=== PATIENT | male | born 1970 | race Caucasian/White ===

== ENCOUNTER → 2020-09-04 08:50 | Outpatient (BNVA) | payer OTHER, SELFPAY | PROVIDERS: PCP Physician Assistant; Visit Provider Internal Medicine | DX: S83.92XA Sprain of unspecified site of left knee, initial encounter (principal); S33.9XXA Sprain of unspecified parts of lumbar spine and pelvis, initial encounter; X50.0XXA Overexertion from strenuous movement or load, initial encounter; X50.1XXA Overexertion from prolonged static or awkward postures, initial encounter | CPT/HCPCS: 72110; 73564; 99203 ==

== ENCOUNTER → 2020-09-09 09:36 | Outpatient (BNVA) | payer OTHER, SELFPAY | PROVIDERS: PCP Physician Assistant; Visit Provider Physician Assistant | DX: S39.012A Strain of muscle, fascia and tendon of lower back, initial encounter (principal); S89.92XA Unspecified injury of left lower leg, initial encounter; X58.XXXA Exposure to other specified factors, initial encounter | CPT/HCPCS: 99214 ==

== ENCOUNTER → 2020-09-17 09:54 | Outpatient (BNVA) | payer OTHER, SELFPAY | PROVIDERS: PCP Physician Assistant; Visit Provider Physician Assistant | DX: S83.92XA Sprain of unspecified site of left knee, initial encounter (principal); S33.9XXA Sprain of unspecified parts of lumbar spine and pelvis, initial encounter; X58.XXXA Exposure to other specified factors, initial encounter | CPT/HCPCS: 99213 ==

== ENCOUNTER 2020-09-29 08:57 | Outpatient (REF) | payer OTHER, SELFPAY ==
--- NOTE | ~2020-09-29 | MR_ITS ---
EXAMINATION: MR KNEE WITHOUT CONTRAST, LEFT CLINICAL INFORMATION: Medial and lateral left knee pain. COMPARISON: Left knee radiographs dated 09/04/2020 and left knee MRI dated 05/11/2006. TECHNIQUE: MRI of the knee without contrast was performed using routine sequences on a high-field scanner. FINDINGS: MENISCI: Medial Meniscus: Oblique tibial articular surface tear through the meniscal body and posterior horn extending to the posterior root, significantly increased in prominence when compared to the prior MRI. Associated degenerative signal throughout the medial meniscal body and posterior horn. Lateral Meniscus: Intact LIGAMENTS: Cruciate: Intact Collateral: Thickening of the medial collateral ligament, consistent with a remote injury. Adjacent edema, which could indicate an acute grade 1 sprain. Intact fibular collateral ligament. EXTENSOR MECHANISM: Intact ARTICULAR CARTILAGE/BONE: Patellofemoral Compartment: Normal Medial Compartment: Mild weightbearing articular cartilage signal heterogeneity with tiny marginal osteophytes. Findings are new when compared to the prior examination. Lateral Compartment: Mild articular cartilage signal heterogeneity and subchondral cystic change at the posterior nonweightbearing lateral femoral condyle. Findings are new when compared to the prior examination. JOINT FLUID AND BURSAE: Small joint effusion and trace Vogt's cyst. Fluid within the pes anserine bursa, consistent with mild bursitis. Mild edema volar to the proximal fibula in the region of the previously seen ganglion cyst. MR/MR knee LT wo con IMPRESSION: 1. Oblique tibial articular surface tear of the medial meniscal body and posterior horn extending into the posterior root, significantly increased in prominence when compared to the prior MRI. 2. Probable grade 1 sprain of the medial collateral ligament. 3. Mild medial and minimal lateral compartment arthrosis, new when compared to the prior examination. Small joint effusion and trace Vogt's cyst. 4. Fluid within the pes anserine bursa, consistent with mild bursitis and new when compared to the prior examination.
== END 2020-09-29 08:58 | disposition home or self-care (01) ==
LOC: HO.MRI 08:57
PROVIDERS: Visit Provider Internal Medicine
DX: M25.562 Pain in left knee (principal)
CPT/HCPCS: 73721

== ENCOUNTER → 2020-09-30 09:06 | Outpatient (BNVA) | payer OTHER, SELFPAY | PROVIDERS: PCP Physician Assistant; Visit Provider Physician Assistant | DX: S89.92XA Unspecified injury of left lower leg, initial encounter (principal); X58.XXXA Exposure to other specified factors, initial encounter; M54.5 Low back pain | CPT/HCPCS: 99213 ==

== ENCOUNTER → 2020-10-08 10:09 | Outpatient (BNVA) | payer OTHER, SELFPAY | PROVIDERS: PCP Physician Assistant; Visit Provider Physician Assistant | DX: S83.207D Unspecified tear of unspecified meniscus, current injury, left knee, subsequent encounter (principal); S83.412D Sprain of medial collateral ligament of left knee, subsequent encounter; X58.XXXD Exposure to other specified factors, subsequent encounter; M54.5 Low back pain | CPT/HCPCS: 99213 ==

== ENCOUNTER → 2020-10-28 10:40 | Outpatient (BNVA) | payer OTHER, SELFPAY | PROVIDERS: PCP Physician Assistant; Visit Provider Physician Assistant | DX: S83.242D Other tear of medial meniscus, current injury, left knee, subsequent encounter (principal); X58.XXXD Exposure to other specified factors, subsequent encounter | CPT/HCPCS: 99213 ==

== ENCOUNTER 2020-11-06 11:00 | Outpatient (RCR) | payer OTHER, SELFPAY ==
--- NOTE | 2020-09-19 14:37 | MHC.PT.EP ---
[facility] [place] Office [place] Office [place] Office [address] [phone] F: [phone] F: [phone] F: [phone] F: [phone] Physical Therapy Plan of Care Date of Evaluation: Date of Surgery: Diagnosis: LBP AND LEFT KNEE INJURY Assessment: Tim arrives with hip and knee pain, left, following injury at work. Upon exam he demonstrates impairments including decreased lumbar ROM, decreased soft tissue mobility of low back, altered posture and positioning, decreased lower extremity ROM and increased pain. Functional limitations include decreased ability to perform walking, standing, bending, squatting, static stance and stairs. He reports decreased ability to perform higher demand homemaking tasks, work tasks, recreational activities and community activities, he reports disrupted sleep. Frequency and Duration: The patient will be seen 2 x week for 4 weeks Short Term Goals: initiate HEP and promote self management of symptoms in 2 visits Plant Safety Leader Goals: Full, painfree ROM of knee and low back in 4 weeks To ambulate ad raquel and negotiate stairs with pain no greater than 2/10 To return to work FT/FD in 4 weeks Treatment Plan: Modalities to reduce pain, spasms and effusion. Manual therapy to restore motion and function. Therapeutic exercise to improve strength and flexibility. Neuromuscular re-education for posture and balance. Therapeutic activities to return to functional activities of daily living. Electronically signed by: Shy Gore PT, DPT Please sign and return to therapist. Thank you for your referral.
== END 2020-12-01 14:46 | disposition home or self-care (01) ==
LOC: HO.PT 11:00
PROVIDERS: PCP Physician Assistant; Visit Provider Physician Assistant
DX: M54.5 Low back pain (principal); M25.562 Pain in left knee
CPT/HCPCS: 97014; 97110; 97112; 97140; 97162; 97530

== ENCOUNTER 2021-02-05 09:00 | Outpatient (RCR) | payer OTHER, SELFPAY | END 2021-05-01 14:46 | disposition home or self-care (01) | LOC: HO.PT 09:00 | PROVIDERS: PCP Physician Assistant; Visit Provider Physician Assistant | DX: Z98.890 Other specified postprocedural states (principal) | CPT/HCPCS: 97110; 97112; 97140; 97162; 97530 ==

== ENCOUNTER 2021-02-18 06:39 | Outpatient (REF) | payer OTHER, SELFPAY ==
[2021-02-18 07:15] LABS: Hematocrit 45.8 % (42.0-52.0); Hemoglobin 15.9 g/dl (14.0-18.0); Mean Corpuscular HGB Conc 34.7 g/dl (31.0-36.0); Mean Corpuscular Hemoglobin 30.8 pg (27.0-33.0); Mean Corpuscular Volume 88.6 fL (80.0-98.0); Mean Platelet Volume 9.6 fL (9.4-12.4); Platelet Count 270 X10*3/uL (160-400); Red Blood Count 5.17 X10*6/uL (4.60-5.80); Red Cell Distribution Width 11.8 % (11.0-16.0); White Blood Count 6.7 X10*3/uL (4.8-10.8)
[2021-02-18 07:35] LABS: Alanine Aminotransferase 51 U/L (0-40); Albumin Level 4.6 g/dL (3.5-5.0); Alkaline Phosphatase 80 U/L (39-117); Anion Gap 12 (12-20); Aspartate Amino Transferase 34 U/L (5-37); Bilirubin Total 2.3 mg/dL (0.0-1.0); Blood Urea Nitrogen 17 mg/dL (9-16); Calcium 9.7 mg/dL (8.4-10.2); Carbon Dioxide 29 mmol/L (22-29); Chloride 104 mmol/L (96-108); Cholesterol 239 mg/dL; Estimated Glomerular Filt Rate > 60; Glucose Fasting 102 mg/dL (60-99); HDL Cholesterol 35 mg/dL; LDL Cholesterol Calculated 156 mg/dl; Potassium 4.4 mmol/L (3.3-5.1); Sodium 141 mmol/L (135-145); Total Protein 7.8 g/dL (6.5-8.0); Triglycerides 243 mg/dL
[2021-02-18 07:40] LABS: Estimated Average Glucose 103 mg/dL; Hemoglobin A1c % 5.2 %
[2021-02-18 08:02] LABS: TSH reflex Free T4 2.43 uIU/mL (0.32-4.0)
[2021-02-18 09:19] LABS: Prostate Specific Antigen Scr 1.15 ng/mL (<0.05-4.0)
== END 2021-02-18 06:40 | disposition home or self-care (01) ==
LOC: HO.LAB 06:39
PROVIDERS: PCP Physician Assistant; Visit Provider Physician Assistant
DX: Z12.5 Encounter for screening for malignant neoplasm of prostate (principal); E78.2 Mixed hyperlipidemia; E66.09 Other obesity due to excess calories; Z68.30 Body mass index [BMI] 30.0-30.9, adult
CPT/HCPCS: 36415; 80053; 80061; 83036; 84153; 84443; 85027

== ENCOUNTER 2021-03-19 11:46 | Outpatient (REF) | payer OTHER, SELFPAY ==
--- NOTE | ~2021-03-19 | CT_ITS ---
EXAMINATION: CT ABDOMEN AND PELVIS WITH CONTRAST CLINICAL INFORMATION: Right lower quadrant pain COMPARISON: None TECHNIQUE: Multidetector volumetric images were obtained from the superior aspect of the liver through the pubic symphysis following administration 85 mL of Omnipaque 350 intravenous contrast and 400 mL oral contrast. Sagittal and coronal reformatted images were obtained on the technologist's workstation. Oral contrast: No This CT examination was performed using dose optimization techniques as appropriate, variously including the following: *Automated exposure control *Adjustment of mA and/or kV according to patient size (this includes techniques or standardized protocols for targeted exams where dose is matched to indication/reason for exam; i.e. extremities or head) *Use of iterative reconstruction technique DLP: 536 mGy-cm FINDINGS: LUNG BASES: The visualized lung bases are unremarkable. LIVER, GALLBLADDER, AND BILIARY TREE: The liver is normal in size, shape, and attenuation. No focal hepatic lesion or biliary ductal dilatation is present. There is a punctate radiopaque calculi in dependent gallbladder without wall thickening. PANCREAS: Unremarkable. SPLEEN: Unremarkable. ADRENAL GLANDS: Unremarkable. KIDNEYS AND URETERS: The kidneys are normal in size, shape, and attenuation. No hydronephrosis, hydroureter, or calculi seen. No perinephric stranding. There is a punctate 2 mm hypodensity in the lower pole cortex left kidney likely small cyst; however, too small to correctly characterize. BLADDER: Unremarkable. GASTROINTESTINAL TRACT: There is scattered stool and gas seen throughout the colon without any significant distention. The small bowel loops are normal caliber. The appendix is not visualized. ABDOMINAL WALL: There is a small umbilical hernia containing fat. LYMPH NODES: Normal. VASCULAR: Unremarkable. PELVIC VISCERA: The uterus is likely surgically removed. OSSEOUS STRUCTURES: Unremarkable. CT/CT abdomen pelvis w con IMPRESSION: No acute intra-abdominal process seen. Especially no inflammatory process seen in the right lower quadrant. Appendix is not seen with certainty. Suspect small radiopaque gallstones in dependent segment. No wall thickening seen. Fleischner guidelines were followed.
[2021-03-19] MEDS: Barium Sulfate Oral (Vanilla) 450 ML ORAL.SUSP 900 ML PO (14:46)
[2021-03-19] MEDS: iohexoL 350 MG/ML 100 ML INFUS..BTL IV (14:47)
== END 2021-03-19 11:47 | disposition home or self-care (01) ==
LOC: HO.CT 11:46
PROVIDERS: Visit Provider Physician Assistant
DX: R10.31 Right lower quadrant pain (principal)
CPT/HCPCS: 74177; Q9967

== ENCOUNTER → 2021-06-04 10:13 | Outpatient (BNVA) | payer OTHER, SELFPAY | PROVIDERS: PCP Physician Assistant; Referring Provider Physician Assistant; Visit Provider Physician Assistant | DX: Z13.89 Encounter for screening for other disorder (principal) ==

== ENCOUNTER 2021-08-20 08:51 | Day surgery (SDC) | payer OTHER, SELFPAY ==
[2021-08-13 20:06] VITALS: BMI 27.1
--- NOTE | 2021-08-19 10:05 | HO.ANESPROP2 ---
HPI - Anesthesia Eval Consult details Narrative: 51yo M for Colonoscopy PMFSH Active Problems Active Problems: All Active Problems (Updated 08/13/21 @ 20:05 by Jazmine Muniz RN) Knee effusion (Acute) Back injury (Acute) Obese (Acute) Hyperlipidemia (Acute) Colon cancer screening (Acute) Right groin pain (Acute) Elevated liver enzymes (Acute) Past Medical History Medical History (Updated 08/13/21 @ 20:05 by Jazmine Muniz RN) Arthritis Back pain Elevated cholesterol Family History Family History Father Hypertension Prostate cancer Mother No problems noted. Surgical History Surgical History (Updated 08/21/21 @ 10:14 by Cathy Lu) H/O arthroscopic knee surgery History of foot surgery History of repair of rotator cuff History of surgery on arm Hx of colonoscopy Social History Social History (Updated 06/09/21 @ 14:30 by Michel Kemp PA-C) Household Members Other:: , 5 kids Housing: House Alcohol intake: current Alcohol intake frequency: a few times a month Alcohol type: beer Patient Tobacco Use Status: Never used Tobacco Tobacco use type: Cigarette e-Cigarette/Vaping Use: Never Used Second Hand Smoke Exposure: No service: No Current occupational status: employed Current occupation: MAINTANCE Meds Allergies Allergy/AdvReac Type Severity Reaction Status Date / Time No Known Allergies Allergy Verified 06/09/21 14:25 [No Known Allergies*] Exam Exam Date and Time: August 19, 2021 1005 Height,Weight and Vital Signs: Height 6 ft Weight 90.718 kg Assessment and Plan Assessment Anesthesia Assessment: Chart Reviewed
[2021-08-20 08:59] VITALS: BP 147/82; PULSE 49; RESP 16; TEMP 36.2; O2SAT 97; BMI 27.1
--- NOTE | 2021-08-20 09:04 | MHC.SHP ---
Pre-Procedural Eval Section A Date of Service: 08/20/21 Section B Chief Complaint: screening Relevant Family History (Specify if Yes): No Relevant Social History: None Present Medications: see Short Stay Collaborative assessment Medical History: Significant History (Arthritis Back pain Elevated cholesterol) History of Previous Operations: Relevant previous surgery/procedure and date(s) (H/O arthroscopic knee surgery History of foot surgery History of repair of rotator cuff History of surgery on arm) Allergies: Allergies Allergy/AdvReac Type Severity Reaction Status Date / Time No Known Allergies Allergy Verified 06/09/21 14:25 [No Known Allergies*] Review of Systems Sugical H&P ROS: Negative: Constitution, Cardiovascular, Respiratory, Neurological, Psychiatric, Hem-Onc, Allergic/Immunologic, Gastrointestinal, Genitourinary, Musculoskeletal, Integumentary, Endocrine and Eyes/Ears/Nose/Throat Exam Surgical H&P Exam: Normal: HEENT, Normal: Heart, Normal: Lungs, Normal: Extremities, Normal: Abdomen, Normal: Skin and Normal: Neurological Plan Diagnosis/Plan: Unchanged I have reviewed the history and physical and performed a pertinent physical examination on my patient. No changes have occurred unless specified.
--- NOTE | 2021-08-20 09:05 | P.BOP_ITS ---
Brief Operative Note Date of Service: 08/20/21 Pre-op diagnosis: screening colonoscopy Post-op diagnosis: same Procedure: see op note Surgeon: Norris Fry MD Anesthesia: MAC Was an Tele Grout Sewer Line Repairer used for this Procedure?: No Estimated blood loss (mL): 0 Condition: stable Disposition: PACU
--- NOTE | 2021-08-20 09:05 | P.OP_ITS ---
Operative Note Operative Note Date of Service: 08/20/21 Narrative: Operative Information Procedure Description: Colonoscopy Indication: screening colonoscopy Anesthesia: MAC COLONOSCOPY Instrument: Olympus variable stiffness pediatric scope 190L Colonoscopy Monitoring: Vital signs and clinical assessment, continuous EKG monitoring, Pulse oximetry, Carbon Dioxide monitoring and blood pressure monitoring were done throughout the procedure. Colon withdrawal time was 6 minutes. Procedure: The patient was placed in the left lateral decubitis position and pre-procedure medications were administered. After a digital rectal examination of the ano-rectum, the video colonoscope was inserted into the rectum and advanced through the colon to the cecum/TI. The colonoscope was slowly withdrawn in a retrograde panoramic fashion and the colon mucosa was carefully examined including a retroflexed view of the rectum. Findings and interventions are described below. Procedure Difficulty: easy Findings: Terminal Ileum-normal Right sided retroflexion was normal Cecum:normal Ascending Colon: normal Transverse Colon -normal Descending Colon:normal Sigmoid Colon: normal Rectum: Retroflexion with small internal hemorrhoids, grade I Anorectum - normal Colon preparation: Harmony Bowel Preparation Scale Right colon; 2 Transverse colon: 3 Left colon; 3 (0 = Unprepared colon segment with mucosa not seen due to solid stool that cannot be cleared. 1 = Portion of mucosa of the colon segment seen, but other areas of the colon segment not well seen due to staining, residual stool and/or opaque liquid. 2 = Minor amount of residual staining, small fragments of stool and/or opaque liquid, but mucosa of colon segment seen well. 3 = Entire mucosa of colon segment seen well with no residual staining, small fragments of stool or opaque liquid) Impression and Post Procedure Diagnosis: internal hemorrhoids Plan: High fiber diet leaflet Avoid straining at stool, epsom salts and sitz bath, anusol supps or cream Repeat Colonoscopy in 10 years or earlier if clinically indicated Above findings were reviewed with the patient and relevant handouts were provided if indicated.
[2021-08-20 09:35] VITALS: BP 102/59; PULSE 56; RESP 16; TEMP 36.4; O2SAT 96
[2021-08-20 09:50] VITALS: BP 126/72; PULSE 49; RESP 18; TEMP 36.4; O2SAT 97
--- NOTE | 2021-08-20 10:49 | HO.POSTANES ---
Post Anesthesia Evaluation Post Anesthesia Evaluation Vital Signs: Vital Signs Temp Pulse Resp BP Pulse Ox O2 Del Method 08/20/21 09:50 97.5 F 49 L 18 126/72 97 Room Air 08/20/21 09:35 97.5 F 56 16 102/59 L 96 Room Air 08/20/21 08:59 97.2 F 49 L 16 147/82 H 97 Room Air Anesthesia: Monitored Pain Control: Satisfactory Nausea/Vomiting: None Hydration: Adequate Anesthesia-Related Issues: No Anes. Related Issues
== END 2021-08-20 10:28 | disposition home or self-care (01) ==
PROVIDERS: PCP Physician Assistant; Visit Provider Internal Medicine Gastroenterology
PROC: 0DJD8ZZ Inspection of Lower Intestinal Tract, Via Natural or Artificial Opening Endoscopic (ICD-10-PCS; CPT 45378; principal; 2021-08-20 10:10)
DX: Z12.11 Encounter for screening for malignant neoplasm of colon (principal); K64.0 First degree hemorrhoids; E78.00 Pure hypercholesterolemia, unspecified; R74.8 Abnormal levels of other serum enzymes; Z86.16 Personal history of COVID-19
CPT/HCPCS: 45378

== ENCOUNTER 2022-09-17 13:04 | Emergency (ER) | payer OTHER, SELFPAY ==
--- NOTE | ~2022-09-17 | XR_ITS ---
EXAMINATION: XR CHEST CLINICAL INFORMATION: Chest pain. Weakness. COMPARISON: 10/25/2008 TECHNIQUE: Frontal view of the chest was obtained. FINDINGS: The lungs are moderately expanded. No focal consolidation. No pleural effusion. Cardiac silhouette is unchanged. XR/XR chest 1V IMPRESSION: No acute abnormality.
--- NOTE | ~2022-09-17 | CT_ITS ---
EXAMINATION: CT HEAD WITHOUT CONTRAST CLINICAL INFORMATION: Headache and dizziness. COMPARISON: None available. TECHNIQUE: Contiguous axial imaging was performed from the skull base to vertex without intravenous administration of contrast. This CT examination was performed using dose optimization techniques as appropriate, variously including the following: *Automated exposure control *Adjustment of mA and/or kV according to patient size (this includes techniques or standardized protocols for targeted exams where dose is matched to indication/reason for exam; i.e. extremities or head) *Use of iterative reconstruction technique DLP: 687 mGy-cm FINDINGS: The brain parenchyma has normal attenuation. The fuller-white matter differentiation is well preserved. No evidence of an acute major vascular territory infarction. No intracranial hemorrhage, extra-axial fluid collection, focal mass effect or midline shift. The ventricles have normal size and configuration; no hydrocephalus. The brainstem and cerebellum have a normal appearance. The cerebellar tonsils are in normal position. The calvarium is intact. Small mucous retention cyst is present at the floor of the right maxillary sinus. Otherwise, the visualized paranasal sinuses, mastoid air cells and middle ear cavities are well aerated. The orbits and globes are unremarkable. The temporomandibular joints are normal. CT/CT head/brain wo IV con IMPRESSION: No acute intracranial pathology.
[2022-09-17 13:43] VITALS: BP 148/90; BP 160/92; PULSE 49; PULSE 54; RESP 16; TEMP 36.7; O2SAT 97; BMI 31.1
--- NOTE | 2022-09-17 13:55 | ECG_ITS ---
Test Reason : DYSPNEA Blood Pressure : / mmHG Vent. Rate : 048 BPM Atrial Rate : 048 BPM P-R Int : 152 ms QRS Dur : 094 ms QT Int : 470 ms P-R-T Axes : 054 -08 033 degrees QTc Int : 419 ms Sinus bradycardia Otherwise normal ECG No previous ECGs available Referred By: Harjinder Sharp Electronically Signed By:SONIA ATWOOD MD
[2022-09-17 14:05] LABS: Glucose, Whole Blood 110 mg/dL (60-115)
[2022-09-17 14:20] LABS: MANUAL DIFF FLAG NO
--- NOTE | 2022-09-17 14:20 | ED.GENADULT ---
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 He states he has had intermittent episodes of dizziness for the last 4 days. It has been getting progressively worse. He states the dizziness previously has not been associated with any headache, nausea, shortness of breath or sweating episodes. He has history of vertigo associated with a head injury in the past. His vertigo episodes were not associated with the symptoms either. He denies any chest pain. He states his dizziness is currently better, headache has resolved. His dizziness does recur when he lifts his head up off the better tries to stand up. He denies any vomiting, abdominal pain. No recent fevers. MD complaint: Dizziness. Onset (ago): day(s) Location: head and chest Radiation: non-radiation Severity: severe Quality: aching Pain Consistency: other (Improving) Relieving factors: rest Exacerbating factors: movement Associated symptoms: headaches, nausea/vomiting, shortness of breath and weakness Treatments prior to arrival: none Related Data Home Medications Medication Instructions Recorded Confirmed No Known Home Meds 09/03/21 02/08/22 Allergies Allergy/AdvReac Type Severity Reaction Status Date / Time No Known Allergies Allergy Verified 02/08/22 14:44 [No Known Allergies*] Review of Systems Review of Systems: Yes all other systems are reviewed and are negative [facility] Past Medical History Medical History Arthritis Back pain Elevated cholesterol Surgical History H/O arthroscopic knee surgery History of foot surgery History of repair of rotator cuff History of surgery on arm Hx of colonoscopy Family History Family History Father Hypertension Prostate cancer Mother No problems noted. Social History Social History (Updated 02/08/22 @ 14:48 by Michel Kemp PA-C) Household Members Other:: , 5 kids Housing: House Alcohol intake: current Alcohol intake frequency: a few times a week Alcohol type: beer Patient Tobacco Use Status: Never used Tobacco Tobacco use type: Cigarette Smoked in Last 30 Days: No e-Cigarette/Vaping Use: Never Used Second Hand Smoke Exposure: No Use of substances other than those prescribed or required for medical reasons: No Advance Directives: No Advance Directives Information Provided: No service: No Current occupational status: employed Current occupation: MAINTANCE Cognitive needs: No Hearing needs: No Vision needs: No Physical Exam ED Vital Signs: Vital Signs - 24 hr 09/17/22 13:43 Temperature 98.1 F Pulse Rate 49 L Respiratory Rate 16 Blood Pressure 160/92 H Pulse Oximetry 97 Oxygen Delivery Method Nasal Cannula BMI result Body Mass Index 31.1 Appearance: Alert. Oriented X3. No acute distress. Head: normocephalic, atraumatic. Eyes: Pupils equal, round and reactive to light. Horizontal nystagmus with EOM. ENT: Pharynx normal. No tonsillar swelling or exudate. Neck: Normal inspection. Neck supple. CVS: Normal heart rate and rhythm. Pulses normal. Respiratory: No respiratory distress. Breath sounds normal. Abdomen: Soft and nontender. +BS x4 Skin: Skin warm and dry. Normal skin color. Normal skin turgor. No rashes. Extremities: No lower extremity edema. No joint swelling. Neuro/psych: Oriented X 3. No motor deficit. No sensory deficit. CN II-XII intact. Normal speech and cognition. Normal finger to nose and heel to riley bilaterally. Negative pronator drift Course Reevaluation(s) Reevaluation #1: signed out to Michael MARTINEZ who will assume care Medications Administered Discontinued Medications Generic Name Dose Route Start Last Admin Trade Name Freq PRN Reason Stop Dose Admin Sodium Chloride 1,000 mls @ 999 mls/hr 09/17/22 14:45 09/17/22 14:58 Ns IVCONT 09/17/22 15:45 999 mls/hr .Q1H1M LAYNE Administration Meclizine HCl 50 mg 09/17/22 14:40 09/17/22 15:01 Meclizine Hcl 25 Mg Tablet PO 09/17/22 14:41 50 mg ONCE ONE Administration Medical Decision Making Medical Decision Making MDM Narrative: 52-year-old male with no significant medical history presents to the ER for evaluation of worsening episodes of dizziness for the last 4 days. Today's episode was accompanied with shortness of breath, nausea, weakness, headache. Hypertensive on arrival to the ER with heart rate 50. Sinus bradycardia on EKG. Denies history of bradycardia in the past. His neuro exam is unremarkable aside from some mild horizontal nystagmus with extraocular movements. He has normal cerebellar function on examination. Will treat for vertigo and get a CT of his head for further evaluation. Differential Diagnosis Differential Diagnoses: The differential diagnosis associated with the presentation includes vertigo, dehydration, orthostaitc hypotension, posterior stroke Admission/Observation Consideration of admission/observation: Escalation of care including admission/observation considered severe dizziness with anginal equivilant, considered admission Lab Data [facility] Lab Attestation statement: I reviewed the patient's lab results. No leukocytosis, no major metabolic derangement 09/17/22 14:17 09/17/22 14:17 Labs: Lab Results 09/17/22 09/17/22 09/17/22 Range/Units 13:45 14:17 14:17 WBC 9.0 (4.8-10.8) X10*3/uL RBC 5.12 (4.60-5.80) X10*6/uL Hgb 15.5 (14.0-18.0) g/dl Hct 44.5 (42.0-52.0) % MCV 86.9 (80.0-98.0) fL MCH 30.3 (27.0-33.0) pg MCHC 34.8 (31.0-36.0) g/dl RDW 11.9 (11.0-16.0) % Plt Count 216 (160-400) X10*3/uL MPV 9.3 L (9.4-12.4) fL Immature Gran % (Auto) 1.3 H (0.0-0.4) % Neut % (Auto) 79.9 H (45-73) % Lymph % (Auto) 11.2 L (20-40) % [place] % (Auto) 5.9 (2-11) % Eos % (Auto) 1.3 (0-4) % Baso % (Auto) 0.4 (0-2) % Lymph # (Auto) 1.0 L (1.2-4.9) X10*3/uL [place] # (Auto) 0.5 (0.1-1.2) X10*3/uL Eos # (Auto) 0.1 (0.0-0.4) X10*3/uL Baso # (Auto) 0.0 (0.0-0.2) X10*3/uL Abs Immat Gran (auto) 0.12 H (0.00-0.03) X10*3/uL Absolute Neuts (auto) 7.2 (2.0-8.3) x10*3/uL Absolute Nucleated RBC 0.000 (0.0-0.012) X10*3/uL Nucleated RBC % (auto) 0.0 (0.0-0.2) /100WBC Sodium 137 (135-145) mmol/L Potassium 4.2 (3.3-5.1) mmol/L Chloride 105 (96-108) mmol/L Carbon Dioxide 26 (22-29) mmol/L Anion Gap 10 L (12-20) BUN 12 (9-16) mg/dL Creatinine 0.88 (0.5-1.4) mg/dL Estim Creat Clear Calc 120.9 Estimated GFR > 60 POC Glucose 110 (60-115) mg/dL Random Glucose 104 (60-115) mg/dL Calcium 9.1 D (8.4-10.2) mg/dL Magnesium 2.1 (1.6-2.6) mg/dL Total Bilirubin 1.1 H (0.0-1.0) mg/dL Direct Bilirubin 0.3 (0.0-0.5) mg/dL AST 41 H (5-37) U/L ALT 58 H (0-40) U/L Alkaline Phosphatase 64 (39-117) U/L Troponin I High Sens (<3.5-35.0) ng/L B-Natriuretic Peptide (<100) pg/mL Total Protein 7.1 (6.5-8.0) g/dL Albumin 4.1 (3.5-5.0) g/dL Urine Color Urine Appearance Urine pH (5.0-9.0) Ur Specific Orange (1.005-1.025) Urine Protein (Neg-Trace) mg/dL Urine Glucose (UA) (Negative) mg/dL Urine Ketones (Negative) mg/dL Urine Blood (Negative) Urine Nitrite (Negative) Ur Leukocyte Esterase (Negative) 09/17/22 09/17/22 09/17/22 Range/Units 14:17 14:17 14:30 WBC (4.8-10.8) X10*3/uL RBC (4.60-5.80) X10*6/uL Hgb (14.0-18.0) g/dl Hct (42.0-52.0) % MCV (80.0-98.0) fL MCH (27.0-33.0) pg MCHC (31.0-36.0) g/dl RDW (11.0-16.0) % Plt Count (160-400) X10*3/uL MPV (9.4-12.4) fL Immature Gran % (Auto) (0.0-0.4) % Neut % (Auto) (45-73) % Lymph % (Auto) (20-40) % [place] % (Auto) (2-11) % Eos % (Auto) (0-4) % Baso % (Auto) (0-2) % Lymph # (Auto) (1.2-4.9) X10*3/uL [place] # (Auto) (0.1-1.2) X10*3/uL Eos # (Auto) (0.0-0.4) X10*3/uL Baso # (Auto) (0.0-0.2) X10*3/uL Abs Immat Gran (auto) (0.00-0.03) X10*3/uL Absolute Neuts (auto) (2.0-8.3) x10*3/uL Absolute Nucleated RBC (0.0-0.012) X10*3/uL Nucleated RBC % (auto) (0.0-0.2) /100WBC Sodium (135-145) mmol/L Potassium (3.3-5.1) mmol/L Chloride (96-108) mmol/L Carbon Dioxide (22-29) mmol/L Anion Gap (12-20) BUN (9-16) mg/dL Creatinine (0.5-1.4) mg/dL Estim Creat Clear Calc Estimated GFR POC Glucose (60-115) mg/dL Random Glucose (60-115) mg/dL Calcium (8.4-10.2) mg/dL Magnesium (1.6-2.6) mg/dL Total Bilirubin (0.0-1.0) mg/dL Direct Bilirubin (0.0-0.5) mg/dL AST (5-37) U/L ALT (0-40) U/L Alkaline Phosphatase (39-117) U/L Troponin I High Sens < 2.7 (<3.5-35.0) ng/L B-Natriuretic Peptide 47 (<100) pg/mL Total Protein (6.5-8.0) g/dL Albumin (3.5-5.0) g/dL Urine Color Yellow Urine Appearance Clear Urine pH 7.5 (5.0-9.0) Ur Specific Orange 1.010 (1.005-1.025) Urine Protein Negative (Neg-Trace) mg/dL Urine Glucose (UA) Negative (Negative) mg/dL Urine Ketones Negative (Negative) mg/dL Urine Blood Negative (Negative) Urine Nitrite Negative (Negative) Ur Leukocyte Esterase Negative (Negative) Independent Historian Clinical information obtained from an independent historian. History obtained from or confirmed by: Spouse and EMS External Record Review External record reviewed: Office record, Outpatient record and Prior outpatient labs Prescription Management I considered prescription management with: Other (meclizine) Chronic Conditions Patient?s care impacted by: Other (HLD) Critical Care Time Critical Care Time Critical Care Time: No Discharge Plan Discharge Clinical Impression: Dizziness Patient Disposition: Still a Patient Prescriptions: No Action No Known Home Meds
[2022-09-17 14:22] LABS: Basophils Percent Auto 0.4 % (0-2); Eosinophils Absolute Auto 0.1 X10*3/uL (0.0-0.4); Eosinophils Percent Auto 1.3 % (0-4); Hematocrit 44.5 % (42.0-52.0); Hemoglobin 15.5 g/dl (14.0-18.0); Imm Gran Abs Auto 0.12 X10*3/uL (0.00-0.03); Imm Gran Pct Auto 1.3 % (0.0-0.4); Lymphocytes Percent Auto 11.2 % (20-40); Mean Corpuscular HGB Conc 34.8 g/dl (31.0-36.0); Mean Corpuscular Hemoglobin 30.3 pg (27.0-33.0); Mean Corpuscular Volume 86.9 fL (80.0-98.0); Mean Platelet Volume 9.3 fL (9.4-12.4); Monocytes Absolute Auto 0.5 X10*3/uL (0.1-1.2); Monocytes Percent Auto 5.9 % (2-11); Neutrophils Absolute Auto 7.2 x10*3/uL (2.0-8.3); Neutrophils Percent Auto 79.9 % (45-73); Platelet Count 216 X10*3/uL (160-400); Red Blood Count 5.12 X10*6/uL (4.60-5.80); Red Cell Distribution Width 11.9 % (11.0-16.0)
[2022-09-17 14:44] LABS: Alanine Aminotransferase 58 U/L (0-40); Albumin Level 4.1 g/dL (3.5-5.0); Alkaline Phosphatase 64 U/L (39-117); Anion Gap 10 (12-20); Aspartate Amino Transferase 41 U/L (5-37); Bilirubin Direct 0.3 mg/dL (0.0-0.5); Bilirubin Total 1.1 mg/dL (0.0-1.0); Blood Urea Nitrogen 12 mg/dL (9-16); Calcium 9.1 mg/dL (8.4-10.2); Carbon Dioxide 26 mmol/L (22-29); Chloride 105 mmol/L (96-108); Creatinine Clr Calc Pharmacy 120.9; Estimated Glomerular Filt Rate > 60; Glucose Random 104 mg/dL (60-115); Magnesium 2.1 mg/dL (1.6-2.6); Potassium 4.2 mmol/L (3.3-5.1); Sodium 137 mmol/L (135-145); Total Protein 7.1 g/dL (6.5-8.0)
[2022-09-17 14:49] LABS: B Type Natriuretic Peptide 47 pg/mL (<100)
[2022-09-17 14:50] LABS: Appearance Urine Clear; Color Urine Yellow; Glucose Urine UA Negative (Negative); Leukocyte Esterase Urine Negative (Negative); Nitrite Urine Negative (Negative); PH 7.5 (5.0-9.0); Urine Blood Negative (Negative); Urine Ketones Negative (Negative); Urine Protein Negative (Neg-Trace)
[2022-09-17] MEDS: 0.9 % Sodium Chloride 1,000 ML 999 ML IVCONT (14:58)
[2022-09-17] MEDS: Meclizine HCl 25 MG TABLET 50 MG PO (15:01)
[2022-09-17 15:11] LABS: Troponin-I High Sensitivity < 2.7 ng/L (<3.5-35.0)
[2022-09-17 17:30] VITALS: BP 159/87; PULSE 50
[2022-09-17 17:32] VITALS: BP 158/84; PULSE 49
[2022-09-17 17:34] VITALS: BP 149/87; PULSE 50
== END 2022-09-17 18:38 | disposition home or self-care (01) ==
PROVIDERS: Physician Assistant; Emergency Provider Emergency Medicine; PCP Physician Assistant
DX: R06.02 Shortness of breath (principal); R42 Dizziness and giddiness; R07.89 Other chest pain; R00.1 Bradycardia, unspecified; R51.9 Headache, unspecified; Z79.899 Other long term (current) drug therapy
CPT/HCPCS: 36415; 70450; 71045; 80048; 80076; 81003; 82947; 83735; 83880; 84484; 85025; 93005; 99284; 99285

== ENCOUNTER → 2022-09-17 13:55 | Outpatient (BNV) | payer OTHER, SELFPAY | PROVIDERS: Emergency Provider Emergency Medicine; PCP Physician Assistant; Visit Provider Internal Medicine Cardiovascular Disease | DX: R00.1 Bradycardia, unspecified (principal) | CPT/HCPCS: 93010 ==

== ENCOUNTER → 2022-09-22 09:27 | Outpatient (BNVA) | payer OTHER, SELFPAY | PROVIDERS: PCP Physician Assistant; Visit Provider Physician Assistant | DX: R42 Dizziness and giddiness (principal); S00.93XA Contusion of unspecified part of head, initial encounter; W22.8XXA Striking against or struck by other objects, initial encounter | CPT/HCPCS: 99204 ==

== ENCOUNTER 2022-10-01 09:00 | Outpatient (RCR) | payer OTHER, SELFPAY ==
[2022-09-24 08:04] VITALS: BP 148/85; PULSE 48
--- NOTE | 2022-09-24 09:46 | MHC.PT.EP ---
[facility] [place] Office [place] Office [place] Office [address] Twila Dash [address] [phone] F: [phone] F: [phone] F: [phone] F: [phone] Physical Therapy Plan of Care Date of Evaluation: Date of Surgery: NA Diagnosis: Vertigo Assessment: Tim is a 52 year old male who is referred to PT for vertigo . He reports of having sudden onset of symptoms of dizziness last week on Tuesday- 09/17/22. He passed out in his stationary car due to heat exhaustion. When he woke up in the ED he started experiencing symptoms of dizziness. On PT examination he reports of having room spinning dizziness which lasts for about 20-30 seconds with rolling in bed, supine <> sit, looking up or down and looking side to side. He denies having nausea. He presents with intact saccades, smooth pursuit, visual tracking and saccades. He was positive for L AC BPPV. He lives with his family and is independent with all BADLS but does them slowly to avoid dizziness. He does not perform any IADLS at home due to dizziness. 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 He would benefit from skilled PT to address the aforementioned impairments and improve tolerance to functional activities. Frequency and Duration: The patient will be seen 2/week for 4 weeks Short Term Goals: Snf Goals: Patient to be educated on symptoms and indications to return to therapy when needed min 4 weeks. Pt will be negative for nystagmus or reports of vertigo in all diagnostic positions bilaterally to resolution of BPPV in 4 weeks. Patient to be able to functionally move in all planes and directions without provocation of dizziness to show return to PLOF in 4 weeks. Treatment Plan: Modalities to reduce pain, spasms and effusion. Manual therapy to restore motion and function. Therapeutic exercise to improve strength and flexibility. Neuromuscular re-education for posture and balance. Therapeutic activities to return to functional activities of daily living. Electronically signed by: Corinne Rojas PT DPT Please sign and return to therapist. Thank you for your referral.
--- NOTE | 2022-11-03 10:37 | MHC.PT.DC ---
[facility] [place] Office [place] Office [place] Office [address] [phone] F: [phone] F: [phone] F: [phone] F: [phone] Physical Therapy Discharge Report Diagnosis: Vertigo Date of Surgery: NA Date of Evaluation: 09/24/22 Date of Discharge: 11/03/22 Treatments to Date: 2 Cancellations to Date: 0 No Shows to Date: Discharge Status: Achieved Goals Independent with HEP Discharge Summary: Tim has had no symptoms of vertigo in over a month. He is therefore being d/c from PT. Electronically signed by: Corinne Rojas PT DPT Please sign and return to therapist. Thank you for your referral.
== END 2022-11-03 10:37 | disposition home or self-care (01) ==
LOC: HO.PT 09:00
PROVIDERS: PCP Physician Assistant; Visit Provider Physician Assistant
DX: R42 Dizziness and giddiness (principal)
CPT/HCPCS: 95992; 97112; 97161

== ENCOUNTER 2022-10-06 10:08 | Outpatient (REF) | payer OTHER, SELFPAY ==
[2022-10-06 10:44] LABS: Hematocrit 46.8 % (42.0-52.0); Hemoglobin 16.1 g/dl (14.0-18.0); Mean Corpuscular HGB Conc 34.4 g/dl (31.0-36.0); Mean Corpuscular Hemoglobin 30.5 pg (27.0-33.0); Mean Corpuscular Volume 88.6 fL (80.0-98.0); Mean Platelet Volume 9.8 fL (9.4-12.4); Platelet Count 266 X10*3/uL (160-400); Red Blood Count 5.28 X10*6/uL (4.60-5.80); Red Cell Distribution Width 11.9 % (11.0-16.0); White Blood Count 7.7 X10*3/uL (4.8-10.8)
[2022-10-06 11:33] LABS: Alanine Aminotransferase 50 U/L (0-40); Albumin Level 4.3 g/dL (3.5-5.0); Alkaline Phosphatase 70 U/L (39-117); Anion Gap 16 (12-20); Aspartate Amino Transferase 30 U/L (5-37); Blood Urea Nitrogen 18 mg/dL (9-16); Calcium 9.5 mg/dL (8.4-10.2); Carbon Dioxide 25 mmol/L (22-29); Chloride 106 mmol/L (96-108); Cholesterol 243 mg/dL; Estimated Glomerular Filt Rate > 60; Glucose Fasting 100 mg/dL (60-99); HDL Cholesterol 38 mg/dL; LDL Cholesterol Calculated 142 mg/dl; Potassium 4.8 mmol/L (3.3-5.1); Sodium 142 mmol/L (135-145); Total Protein 7.7 g/dL (6.5-8.0); Triglycerides 315 mg/dL
[2022-10-06 11:43] LABS: Prostate Specific Antigen Scr 2.13 ng/mL (<0.05-4.0)
[2022-10-06 11:48] LABS: TSH reflex Free T4 1.32 uIU/mL (0.32-4.0)
== END 2022-10-06 10:09 | disposition home or self-care (01) ==
LOC: HO.LAB 10:08
PROVIDERS: PCP Physician Assistant; Visit Provider Physician Assistant
DX: Z12.5 Encounter for screening for malignant neoplasm of prostate (principal); E66.09 Other obesity due to excess calories; Z68.30 Body mass index [BMI] 30.0-30.9, adult; E78.2 Mixed hyperlipidemia
CPT/HCPCS: 36415; 80053; 80061; 84153; 84443; 85027

== ENCOUNTER 2022-10-12 11:39 | Outpatient (AMB) | payer OTHER, SELFPAY ==
--- NOTE | 2022-10-12 11:39 | MHC.PC.OV ---
Vital Signs 10/12/22 11:43 Height 6 ft Weight 220 lb 8 oz BMI 29.9 BP 126/70 Blood Pressure Location Lt brachial Position Sitting Pulse 57 Pulse Source Pulse Oximeter Pulse Oximetry (%) 98 Oxygen Delivery Method Room Air Intake Visit Reasons: check on dehydration/vertigo Intake Note: pt is here for check up for dehydration/vertigo Receptionist Telephone Operator Required: No Accompanied by: Self / Same As Patient Allergies No Known Allergies [No Known Allergies*] Allergy (Verified 10/12/22 11:41) Tobacco use date assessed: 10/12/22 Dental Screening Dental Screen Date: 10/12/22 Did you have a dental visit in the last 12 months?: Yes Did you have a dental problem in the last 6 months where you did not have access to dental care?: No Was dental information given to patient?: Patient has dentist HPI check on dehydration/vertigo HPI Details Patient is a 52-year-old male here today for an ER follow-up visit. Patient was seen at the ER in September of 2022 for acute dizziness and fatigue. CT head was negative for intracranial pathology. X-ray chest was negative. Labs were stable Presumed diagnosis was dehydration. He reports the syncopal episode to trigger his vertigo and was started on meclizine 50 mg to which has been taken with excellent response. He feels much less dizzy and feels ready to return back to work. Would likely need clearance from were connection as well. Concern--> Patient reports about a year history of urinary frequency worse when drinking a few beers. He is concerned as his father did have prostate cancer. PSA is normal and most recent urinalysis without any signs of UTI. Also reviewed labs with patient and noted high total cholesterol. He will be working on lifestyle modifications to reduce his cholesterol. Will recheck in 4 months Laboratory Tests 09/17/22 10/06/22 10/06/22 14:17 10:20 10:20 RBC 5.28 Creatinine 1.04 Fasting Glucose 100 H AST 41 H 30 ALT 58 H 50 H Triglycerides 315 Cholesterol 243 PFSH Medical History Arthritis Back pain Elevated cholesterol Surgical History H/O arthroscopic knee surgery History of foot surgery History of repair of rotator cuff History of surgery on arm Hx of colonoscopy Family History Father Hypertension Prostate cancer Mother No problems noted. Social History Household Members Other:: , 5 kids Housing: House Alcohol intake: current Alcohol intake frequency: a few times a week Alcohol type: beer Patient Tobacco Use Status: Never used Tobacco Tobacco use type: Cigarette e-Cigarette/Vaping Use: Never Used Second Hand Smoke Exposure: No service: No Current occupational status: employed Current occupation: MAINTANCE Cognitive needs: No Hearing needs: No Vision needs: No Questionnaire PHQ-9 Over the last 2 weeks, how often have you been bothered by any of the following problems? 1. Little interest or pleasure in doing things: not at all 2. Feeling down, depressed, or hopeless: not at all 3. Trouble falling or staying asleep, or sleeping too much: not at all 4. Feeling tired or having little energy: not at all 5. Poor appetite or overeating: not at all 6. Feeling bad about yourself - or that you are a failure or have let yourself or your family down: not at all 7. Trouble concentrating on things, such as reading the newspaper or watching television: not at all 8. Moving or speaking so slowly that other people could have noticed. Or the opposite - being so fidgety or restless that you have been moving around a lot more than usual: not at all 9. Thoughts that you would be better off or of hurting yourself in some way: not at all Total score: 0 Depression Screening Interpretation: Negative 76359 - PHQ-9 Billing: Yes Source: Developed by Drs. Jorge A Reilly, Mary Cook, Harrison Avila and colleagues, with an educational jade from [employer]. Thrive Questionnaire Date Thrive assessed: 10/12/22 I am a: Patient What is your living situation today?: I have a steady place to live Within the past 12 months, did the food you bought not last and you didn't have the money to get more?: Never true Within the past 12 months, did you worry whether your food would run out before you got money to buy more?: Never true Do you have trouble paying for medicines?: No Do you have trouble getting transportation to medical appointments?: No Do you have trouble paying your heating and electricity bill?: No Do you have trouble taking care of your child, family member or friend?: No Do you have trouble with day-to-day activities such as bathing, preparing meals, shopping, managing finances, etc.?: No Are you currently unemployed and looking for a job?: No Are you interested in more education?: No Please select the resources that you would like help with: None Currently or been in a relationship where the following occur: no concerns reported PAWEL-7 AMB Questionnaire PAWEL-7 Date PAWEL - 7 assessed: 10/12/22 Feeling nervous, anxious, or on edge: 0 = Not at all Not being able to stop or control worryin = Not at all Worrying too much about different things: 0 = Not at all Trouble relaxin = Not at all Being so restless that it is hard to sit still: 0 = Not at all Becoming easily annoyed or irritable: 0 = Not at all Feeling afraid as if something awful might happen: 0 = Not at all Total PAWEL-7 score (0-4 normal; 5-9 mild; 10-14 moderate; 15-21 severe): 0 Source: Developed by Drs. Jorge A Reilly, Mary Cook, Harrison Avila and colleagues, with an educational jade from [employer]. PAWEL-7 Assessment Billing PAWEL-7 Assessment Tool: PAWEL-7 Assessment 30783 Review of Systems Const Denies headache(s) Eyes Denies loss of vision ENT Denies vertigo, Denies dizziness, Denies headache(s) and Denies sore throat Card Denies chest pain, Denies leg edema and Denies lightheadedness Resp Denies cough, Denies hemoptysis and Denies wheezing GI Denies abdominal pain, Denies melena, Denies constipation, Denies diarrhea and Denies vomiting Denies dysuria, Denies urinary frequency and Denies urinary urgency Musc Denies arthralgias, Denies joint swelling, Denies numbness and Denies tingling Neuro Denies Abnormal speech present, Denies behavioral changes, Denies vertigo, Denies dizziness, Denies headache(s), Denies loss of vision, Denies memory loss, Denies numbness and Denies tingling Psych Denies anxiety, Denies behavioral changes, Denies depression, Denies memory loss and Denies panic attacks Jaxon/Lymph Denies easy bleeding and Denies easy bruising Aller/Immun Denies wheezing Physical exam (Primary Care) Vital Signs: Last Vital Signs Pulse 57 10/12/22 11:43 BP 126/70 10/12/22 11:43 Pulse Ox 98 10/12/22 11:43 Oxygen Delivery Method Room Air 10/12/22 11:43 BMI result Body Mass Index 29.9 Tobacco/Smoking Status: Tobacco use Status Tobacco use date assessed 10/12/22 10/12/22 11:45 Patient Tobacco Use Status Never used Tobacco 10/12/22 11:40 Tobacco use type Cigarette 10/12/22 11:40 e-Cigarette/Vaping Use Never Used 10/12/22 11:40 PHQ-9: PHQ-9 Score PHQ-9: Total score 0 10/12/22 11:45 Depression Screening Interpretation: Negative Thrive Assessment: Date of Thrive Assessment Date Thrive assessed 10/12/22 10/12/22 11:45 Currently or been in a relationship where the following occur: no concerns reported Const General: healthy appearing, no acute distress, alert and awake Nutritional Appearance: well nourished Orientation/consciousness: oriented to person, oriented to place and oriented to time HENMT Ears: TM's normal bilaterally General nose exam: Normal nasal mucous membranes and turbinates present Eyes Conjunctivae: conjunctivae normal Sclerae: sclerae normal Pupils: Equal, round and reactive pupils present Neck Neck: Yes no lymphadenopathy and Yes no JVD Thyroid: Thyroid normal Carotids: no bruits Resp Effort & Inspection: normal respiratory effort and not tachypneic Auscultation: no crackles, no rales, no rhonchi and no wheezes Cardio Rate: regular rate Rhythm: regular rhythm Heart sounds: no murmurs and normal S1 and S2 GI Palpation (GI): Soft to palpation, nontender, no hepatomegaly and no splenomegaly Auscultation: normal bowel sounds Skin General skin exam: no rashes or lesions noted and dry skin Neuro General: oriented to person, oriented to place and oriented to time Cranial nerves: Yes Equal, round and reactive pupils present Speech: No Abnormal speech present Gait exam (Neuro): Normal gait present Motor exam (neuro): no tremor noted Extrem Right upper extremity: full ROM Left upper extremity: full ROM Right lower extremity: full ROM; no edema Left lower extremity: full ROM; no edema Psych Mental Status: mental status grossly normal Speech and movement: Normal speech and movement present Affect: normal affect Attitude: cooperative Thought process: Normal thought process present Assessment and Plan Assessment & Plan (1) Heat exhaustion: Code(s): T67.5XXA - Heat exhaustion, unspecified, initial encounter Qualifiers: Encounter type: sequela Qualified Code(s): T67.5XXS - Heat exhaustion, unspecified, sequela Plan: As above (2) Syncope and collapse: Code(s): R55 - Syncope and collapse Plan: As per HPI patient suffered a syncope a episode likely due to heat exhaustion at work. While in the ER CT head normal, chest x-ray normal. Labs stable. He reports this syncopal episode did trigger his vertigo was started on meclizine to which he has been taken on a daily basis and feeling much better. He reports less dizziness and would like to return back to work. (3) Urinary frequency: Code(s): R35.0 - Frequency of micturition Plan: Patient reports about a year history of urinary frequency worse when drinking a few beers. He is concerned as his father did have prostate cancer. PSA is normal and most recent urinalysis without any signs of UTI. Will trial tamsulosin to help completely empty bladder. Will refer to Urology for further evaluation. (4) Hyperlipidemia: Code(s): E78.5 - Hyperlipidemia, unspecified Qualifiers: Hyperlipidemia type: mixed hyperlipidemia Qualified Code(s): E78.2 - Mixed hyperlipidemia Plan: Patient fasting lipid panel showing elevated total cholesterol. He will work on lifestyle modifications to reduce his high cholesterol foods. Will recheck his fasting lipid panel in 4 months and if remains elevated will consider statin therapy. Orders: Orders Comprehensive Reagan. Panel Fast 4 Months E78.2 - Mixed hyperlipidemia Lipid Panel 4 Months E78.2 - Mixed hyperlipidemia Referrals Urology Referral R35.0 - Frequency of micturition Medications: New tamsulosin 0.4 mg PO DAILY 21 days 21 caps 0RF R35.0 - Frequency of micturition Coding Level of Care Code Est Pt Level 4 (04053) Diagnoses Heat exhaustion T67.5XXS Encounter type: sequela Syncope and collapse R55 Urinary frequency R35.0 Hyperlipidemia E78.2 Hyperlipidemia type: mixed hyperlipidemia Additional Codes PAWEL-7 Assessment Billing - PAWEL-7 Assessment Tool: PAWEL-7 Assessment [id number] ([id number])
[2022-10-12 11:43] VITALS: BP 126/70; PULSE 57; O2SAT 98; BMI 29.9
== END 2022-10-12 12:19 | disposition home or self-care (01) ==
PROVIDERS: PCP Physician Assistant; Visit Provider Physician Assistant
DX: R55 Syncope and collapse (principal); T67.5XXS Heat exhaustion, unspecified, sequela; R35.0 Frequency of micturition; E78.2 Mixed hyperlipidemia
CPT/HCPCS: 99214

== ENCOUNTER → 2022-10-14 09:43 | Outpatient (BNVA) | payer OTHER, SELFPAY | PROVIDERS: PCP Physician Assistant; Visit Provider Physician Assistant | DX: T67.5XXD Heat exhaustion, unspecified, subsequent encounter (principal); R42 Dizziness and giddiness | CPT/HCPCS: 99213 ==

== ENCOUNTER 2022-12-20 14:46 | Outpatient (AMB) | payer OTHER, SELFPAY ==
--- NOTE | 2022-12-20 14:50 | MHC.OFFVIS ---
Intake Intake Visit Reasons: - Frequency of micturition Intake Note: New Patient presents for initial visit for urinary frequency Urology Medications: none Blood Thinner: none Imaging Technologist Required: No Accompanied by: Self / Same As Patient Allergies No Known Allergies [No Known Allergies*] Allergy (Verified 12/20/22 21:05) Medication List - Last Reconciled 12/20/22 by BRENNON Hanna meclizine 50 mg PO BID PRN HPI HPI Comments History of Present Illness Details Tim is a pleasant 52-year-old male patient of Dr. Kemp. He has a past medical history of arthritis, back pain, and hypercholesteremia. He presents to the office today as a new patient for lower urinary tract symptoms. In discussion with the patient today reports to be doing and feeling well. He reports noting lower urinary tract symptoms over the last year. He reports feeling in being worried as he has a family history of prostate cancer. He reports his father being diagnosed with prostate cancer in his 50s. When asked he reports urinary frequency, urinary urgency, and intermittent episodes of nocturia and dysuria. He otherwise denies incontinence, hematuria, foul smelling urine, changes to urinary stream, flank pain, fever, and or chills. He is happy with his current voiding parameters. He reports having trialed Flomax given by his PCP and noting no improvement in urinary symptoms however also feel symptoms have not worsened. He also discusses having no sexual desire and having issues with maintaining erections. In office urinalysis results reviewed with the patient today. He otherwise denies any bothersome urinary issues or concerns at this time. MAX offered however deferred. In review of patient's chart it appears PSAs are as follows: 02/24--1.2 10/27--2.1 Discussed at length redraw of PSA as well as testosterone free and total for further assess evaluation. Will also obtain retroperitoneal ultrasound for further assessment and evaluation. PFSH Medical History Arthritis Back pain Elevated cholesterol Surgical History Hx of colonoscopy H/O arthroscopic knee surgery History of foot surgery History of surgery on arm History of repair of rotator cuff Family History Father Hypertension Prostate cancer Mother No problems noted. Social History Household Members Other:: , 5 kids Housing: House Alcohol intake: current Alcohol intake frequency: a few times a week Alcohol type: beer Patient Tobacco Use Status: Never used Tobacco Tobacco use type: Cigarette e-Cigarette/Vaping Use: Never Used Second Hand Smoke Exposure: No service: No Current occupational status: employed Current occupation: MAINTANCE Cognitive needs: No Hearing needs: No Vision needs: No Review of Systems Const Reports as per HPI Eyes Reports no additional complaints ENT Reports no additional complaints Card Reports as per HPI Resp Reports no additional complaints GI Reports no additional complaints Reports as per HPI Musc Reports as per HPI Neuro Reports no additional complaints Psych Reports no additional complaints Endo Reports no additional complaints Jaxon/Lymph Reports no additional complaints Aller/Immun Reports no additional complaints Physical Exam Const General: cooperative, healthy appearing, comfortable, no acute distress, well developed, alert and awake Orientation/consciousness: patient oriented x3 Limitations: no limitations HEENT Head: Yes normal to inspection, Yes normocephalic and Yes atraumatic Ears: hearing grossly normal bilaterally Eyes General: appearance normal, both eyes and all related structures Neck Neck: Yes normal visual inspection and Yes trachea midline Chest Chest palpation & inspection: normal inspection of the chest Resp Effort & Inspection: normal respiratory effort and able to speak in complete sentences Cardio Rate: regular rate GI Inspection: Yes normal to inspection General: Yes no CVA tenderness Back/Spine/Pelvis Back: no CVA tenderness Skin General skin exam: no rashes or lesions noted Neuro General: patient oriented x3 Extrem General: Yes normal to inspection Psych Appearance: grossly normal and well kempt Mental Status: mental status grossly normal Speech and movement: Normal speech and movement present and Clear speech present Affect: normal affect Attitude: cooperative Thought process: Normal thought process present Thought content: Normal thought content present Insight: Fair insight present (Psych) Judgement: Fair judgement present (Psych) Office Procedures Post Void Residual Post Residual Void Post Void Residual (PVR): 0 [id number] Void Residual by ultrasound Results AMB Urinalysis, Automated UA Leukoctes 0 Corey/uL Last Edit by Sammy Paulino on 12/20/22 15:12 UA Nitrite Negative Last Edit by Sammy Paulino on 12/20/22 15:12 UA Urobilinogen 0.2 mg/dL Last Edit by Sammy Paulino on 12/20/22 15:12 UA Protein 0 mg/dL Last Edit by Sammy Paulino on 12/20/22 15:12 UA pH 6.0 Last Edit by Sammy Paulino on 12/20/22 15:12 UA Blood 0 Archie/uL Last Edit by Sammy Paulino on 12/20/22 15:12 UA Specific [place] 1.020 Last Edit by [email or web address] Paulino on 12/20/22 15:12 UA Ketone Negative Last Edit by Sammy Paulino on 12/20/22 15:12 UA Bilirubin 0 mg/dL Last Edit by Sammy Paulino on 12/20/22 15:12 UA Glucose 0 mg/dL Last Edit by Sammy Paulino on 12/20/22 15:12 Results Reviewed Results Reviewed: Laboratory Last Values Urine pH (Auto) 6.0 12/20/22 14:59 Specific [place] (Auto) 1.020 12/20/22 14:59 Urine Protein (Auto) 0 mg/dL 12/20/22 14:59 Glucose (UA)(Auto) 0 mg/dL 12/20/22 14:59 Urine Ketones (Auto) Negative 12/20/22 14:59 Urine Blood (Auto) 0 Archie/uL 12/20/22 14:59 Urine Nitrite (Auto) Negative 12/20/22 14:59 Urine Bilirubin (Auto) 0 mg/dL 12/20/22 14:59 Urine Urobilinogen (Auto) 0.2 mg/dL 12/20/22 14:59 Leukocyte Esterase (Auto) 0 Corey/uL 12/20/22 14:59 Assessment & Plan Assessment & Plan (1) Urinary frequency: Code(s): R35.0 - Frequency of micturition (2) Family history of prostate cancer in father: Code(s): Z80.42 - Family history of malignant neoplasm of prostate Plan In office urinalysis results reviewed with the patient today; as noted above. PVR 0 mL. Discussed at length potential causes for lower urinary tract symptoms Will obtain retroperitoneal ultrasound for further assessment evaluation. Will obtain PSA free and total with specific instructions with no sex the night before, no caffeine morning of, and no heavy lifting 1-2 days prior to lab draw. MAX offered however deferred. Follow-up in 1-2 months with imaging and labs to be completed prior; or sooner with any issues, concerns, and or questions Orders: Orders AMB Post Void Residual by ultrasound Today R35.0 - Frequency of micturition AMB Urinalysis Automated Today Z13.9 - Encounter for screening, unspecified Patient Instructions: The patient had an opportunity to ask questions regarding the treatment plan. All questions were answered. Physical exam, labs, and imaging were discussed and reviewed in detail. As well as risks, benefits, and discussion of treatment choices. No major barriers to understanding were identified. The patient expressed understanding and agreement with the above treatment plan. The patient was made aware they should contact our office by phone for worsening of their current condition, the appearance of new symptoms, or with any questions or concerns. Compliance is encouraged with any medications and follow up testing that is ordered. It is a privilege to be allowed the opportunity to participate in? your urological care.? Again, if you have any questions or concerns If you have any questions or concerns please do not hesitate to contact me. The office is [phone]. This note is constructed using voice recognition software. While every effort has been made to ensure accuracy junior oracle dba errors may have been included. Yours sincerely, BERNICE Hanna-LEONEL Coding Level of Care Code New Pt Level 3 (01495) Diagnoses Urinary frequency R35.0 Family history of prostate cancer in father Z80.42 CPT Codes Post Residual Void - PVR CPT Code: 93606-[id number] Void Residual by ultrasound ([id number])
== END 2022-12-20 15:22 | disposition home or self-care (01) ==
PROVIDERS: PCP Physician Assistant; Visit Provider Nurse Practitioner Family
DX: R35.0 Frequency of micturition (principal); Z80.42 Family history of malignant neoplasm of prostate
CPT/HCPCS: 99203

== ENCOUNTER → 2022-12-20 14:46 | Outpatient (BNVA) | payer OTHER, SELFPAY | PROVIDERS: PCP Physician Assistant; Visit Provider Nurse Practitioner Family | DX: R35.0 Frequency of micturition (principal); Z80.42 Family history of malignant neoplasm of prostate | CPT/HCPCS: 51798; 81003 ==

== ENCOUNTER 2023-01-07 09:01 | Outpatient (REF) | payer OTHER, SELFPAY ==
[2023-01-07 11:11] LABS: PSA,Total (Free>4and<10) 1.36 ng/mL (0.00-4.00)
== END 2023-01-07 09:02 | disposition home or self-care (01) ==
LOC: HO.LAB 09:01
PROVIDERS: PCP Physician Assistant; Visit Provider Nurse Practitioner Family
DX: Z12.5 Encounter for screening for malignant neoplasm of prostate (principal); E11.69 Type 2 diabetes mellitus with other specified complication; N52.1 Erectile dysfunction due to diseases classified elsewhere
CPT/HCPCS: 36415; 84153

== ENCOUNTER 2023-01-14 11:12 | Outpatient (REF) | payer OTHER, SELFPAY ==
--- NOTE | ~2023-01-14 | US_ITS ---
EXAMINATION: US RETROPERITONEAL COMPLETE (RENAL) CLINICAL INFORMATION: Frequency of micturition. COMPARISON: CT abdomen and pelvis 03/19/2021 TECHNIQUE: Real-time imaging of the kidneys and bladder. Limited visualization due to bowel gas. FINDINGS: RIGHT KIDNEY: 11.5 x 5.4 x 5.9 cm (SAG x AP x TRV). No hydronephrosis. No renal calculi. Renal cortical thickness is normal. Limited visualization. LEFT KIDNEY: 11.8 x 6.2 x 6.6 cm (SAG x AP x TRV). No hydronephrosis. No renal calculi. Renal cortical thickness is normal. Limited visualization. BLADDER: Well distended. Mild diffuse irregularity of the bladder wall. Bilateral ureteral jets are demonstrated. Prevoid bladder volume is 523 mL. Postvoid bladder volume is 179 mL. ADDITIONAL FINDINGS: Prostate volume 47.2 mL. US/US retroperitoneal comp IMPRESSION: 1. No hydronephrosis. No renal calculi. Limited visualization. 2. Mild diffuse irregularity of the bladder wall with large postvoid volume. Enlarged prostate.
== END 2023-01-14 11:13 | disposition home or self-care (01) ==
LOC: HO.US 11:12
PROVIDERS: PCP Physician Assistant; Visit Provider Nurse Practitioner Family
DX: R35.0 Frequency of micturition (principal)
CPT/HCPCS: 76770

== ENCOUNTER 2023-01-20 14:06 | Outpatient (AMB) | payer OTHER, SELFPAY ==
--- NOTE | 2023-01-20 14:40 | A.OFFVIS_ITS ---
Intake Intake Visit Reasons: 4w/US/labs(set) Intake Note: Patient presents for follow up visit for urinary frequency/ultrasound/labs (imaging 01/14/23) (psa 1.36) Urology Medications: none Blood Thinner: none Customer Liaison Required: No Accompanied by: Self / Same As Patient Allergies No Known Allergies [No Known Allergies*] Allergy (Verified 01/20/23 21:27) Medication List - Last Reconciled 01/20/23 by Treva Lamas [facility]- alfuzosin ER 10 mg PO DAILY 30 days HPI HPI Comments History of Present Illness Details Tim is a pleasant 52-year-old male patient of Dr. Kemp. He has a past medical history of arthritis, back pain, and hypercholesteremia. He presents to the office today for follow-up. Of note, patient was seen approximately 1 month ago as a new patient for lower urinary tract symptoms at which time a retroperitoneal ultrasound was ordered and a redraw of PSA. These results were reviewed with the patient today. Bilateral kidneys with no hydronephrosis or renal calculi noted. The bladder is well distended. Mild diffuse irregularity of the bladder wall. Bilateral ureteral jets are demonstrated. Pre void bladder volume is approximately 525 mL. Postvoid bladder volume is approximately 180 mL. Prostate volume is approximately 47 mL. PSAs are as follows 02/24--1.2 10/27--2.1 01/27--1.4 In discussion with the patient today reports to be doing and feeling well. He reports his father being diagnosed with prostate cancer in his 50s and would like to continue with close surveillance monitoring. When asked he reports urinary frequency, urinary urgency, and intermittent episodes of nocturia. He otherwise denies incontinence, hematuria, foul smelling urine, changes to urinary stream, flank pain, fever, and or chills. He reports having trialed Flomax given by his PCP and noting no improvement in urinary symptoms however also feel symptoms have not worsened. He does report a previous history of question epididymal head cyst. He reports noting intermittent right-sided scrotal/groin discomfort. He reports at times he feels pain radiates to his bladder. In office urinalysis results reviewed with the patient today. He otherwise denies any bothersome urinary issues or concerns at this time. [facility] Medical History Arthritis Back pain Elevated cholesterol Surgical History Hx of colonoscopy H/O arthroscopic knee surgery History of foot surgery History of surgery on arm History of repair of rotator cuff Family History Father Hypertension Prostate cancer Mother No problems noted. Social History Household Members Other:: , 5 kids Housing: House Alcohol intake: current Alcohol intake frequency: a few times a week Alcohol type: beer Patient Tobacco Use Status: Never used Tobacco Tobacco use type: Cigarette e-Cigarette/Vaping Use: Never Used Second Hand Smoke Exposure: No service: No Current occupational status: employed Current occupation: MAINTANCE Cognitive needs: No Hearing needs: No Vision needs: No Review of Systems Const Reports as per HPI Eyes Reports no additional complaints ENT Reports no additional complaints Card Reports as per HPI Resp Reports no additional complaints GI Reports no additional complaints Reports as per HPI Musc Reports as per HPI Neuro Reports no additional complaints Psych Reports no additional complaints Endo Reports no additional complaints Jaxon/Lymph Reports no additional complaints Aller/Immun Reports no additional complaints Physical Exam Const General: cooperative, healthy appearing, comfortable, no acute distress, well developed, alert and awake Orientation/consciousness: patient oriented x3 Limitations: no limitations HEENT Head: Yes normal to inspection, Yes normocephalic and Yes atraumatic Ears: hearing grossly normal bilaterally Eyes General: appearance normal, both eyes and all related structures Neck Neck: Yes normal visual inspection and Yes trachea midline Chest Chest palpation & inspection: normal inspection of the chest Resp Effort & Inspection: normal respiratory effort and able to speak in complete sentences Cardio Rate: regular rate GI Inspection: Yes normal to inspection General: Yes no CVA tenderness Back/Spine/Pelvis Back: no CVA tenderness Skin General skin exam: no rashes or lesions noted Neuro General: patient oriented x3 Extrem General: Yes normal to inspection Psych Appearance: grossly normal and well kempt Mental Status: mental status grossly normal Speech and movement: Normal speech and movement present and Clear speech present Affect: normal affect Attitude: cooperative Thought process: Normal thought process present Thought content: Normal thought content present Insight: Fair insight present (Psych) Judgement: Fair judgement present (Psych) Results AMB Urinalysis, Automated UA Leukoctes 0 Corey/uL Last Edit by Clarizenruben Paulino on 01/20/23 15:00 UA Nitrite Negative Last Edit by Clarizenruben Paulino on 01/20/23 15:00 UA Urobilinogen 0.2 mg/dL Last Edit by Clarizenruben Paulino on 01/20/23 15:00 UA Protein 15 mg/dL Last Edit by Clarizenruben Progressive Cared[place]it on 01/20/23 15:00 UA pH 6.5 Last Edit by Xianguodawit on 01/20/23 15:00 UA Blood 0 Archie/uL Last Edit by Xianguodawit on 01/20/23 15:00 UA Specific Masterson 1.020 Last Edit by Xianguodawit on 01/20/23 15:00 UA Ketone Negative Last Edit by Xianguodawit on 01/20/23 15:00 UA Bilirubin 0 mg/dL Last Edit by Xianguodawit on 01/20/23 15:00 UA Glucose 0 mg/dL Last Edit by Clarizenruben Progressive [place] on 01/20/23 15:00 Results Reviewed Results Reviewed: Laboratory Last Values Urine pH (Auto) 6.5 01/20/23 14:44 Specific Masterson (Auto) 1.020 01/20/23 14:44 Urine Protein (Auto) 15 mg/dL 01/20/23 14:44 Glucose (UA)(Auto) 0 mg/dL 01/20/23 14:44 Urine Ketones (Auto) Negative 01/20/23 14:44 Urine Blood (Auto) 0 Archie/uL 01/20/23 14:44 Urine Nitrite (Auto) Negative 01/20/23 14:44 Urine Bilirubin (Auto) 0 mg/dL 01/20/23 14:44 Urine Urobilinogen (Auto) 0.2 mg/dL 01/20/23 14:44 Leukocyte Esterase (Auto) 0 Corey/uL 01/20/23 14:44 Date of Service: 01/14/23 EXAMINATION: US RETROPERITONEAL COMPLETE (RENAL) FINDINGS: RIGHT KIDNEY: 11.5 x 5.4 x 5.9 cm (SAG x AP x TRV). No hydronephrosis. No renal calculi. Renal cortical thickness is normal. Limited visualization. LEFT KIDNEY: 11.8 x 6.2 x 6.6 cm (SAG x AP x TRV). No hydronephrosis. No renal calculi. Renal cortical thickness is normal. Limited visualization. BLADDER: Well distended. Mild diffuse irregularity of the bladder wall. Bilateral ureteral jets are demonstrated. Prevoid bladder volume is 523 mL. Postvoid bladder volume is 179 mL. ADDITIONAL FINDINGS: Prostate volume 47.2 mL. IMPRESSION: 1. No hydronephrosis. No renal calculi. Limited visualization. 2. Mild diffuse irregularity of the bladder wall with large postvoid volume. Enlarged prostate. Assessment & Plan Assessment & Plan (1) Scrotal cyst: Code(s): L72.9 - Follicular cyst of the skin and subcutaneous tissue, unspecified (2) Urinary frequency: Code(s): R35.0 - Frequency of micturition (3) Family history of prostate cancer in father: Code(s): Z80.42 - Family history of malignant neoplasm of prostate Plan In office urinalysis results reviewed with the patient today; as noted above. Recent retroperitoneal ultrasound results reviewed with the patient today; as noted above. Recent PSA results reviewed with the patient today; as noted above. Will obtain scrotal ultrasound for further assessment evaluation. Discussed at length potential causes for lower urinary tract symptoms Start alfuzosin as discussed and prescribed. Follow-up in 6 weeks with imaging and PVR at next office visit; or sooner with any issues, concerns, and or questions. Orders: Orders AMB Urinalysis Automated Today Z13.9 - Encounter for screening, unspecified US scrotum Today L72.9 - Follicular cyst of the skin and subcutaneous tissue, unspecified Medications: New alfuzosin ER administer after the same meal each day 10 mg PO DAILY 30 days 30 tabs 1RF N13.8 - Other obstructive and reflux uropathy, N40.1 - Benign prostatic hyperplasia with lower urinary tract symptoms Patient Instructions: The patient had an opportunity to ask questions regarding the treatment plan. All questions were answered. Physical exam, labs, and imaging were discussed and reviewed in detail. As well as risks, benefits, and discussion of treatment choices. No major barriers to understanding were identified. The patient expressed understanding and agreement with the above treatment plan. The patient was made aware they should contact our office by phone for worsening of their current condition, the appearance of new symptoms, or with any questions or concerns. Compliance is encouraged with any medications and follow up testing that is ordered. It is a privilege to be allowed the opportunity to participate in? your urological care.? Again, if you have any questions or concerns If you have any questions or concerns please do not hesitate to contact me. The office is [phone]. This note is constructed using voice recognition software. While every effort has been made to ensure accuracy central supply technician supervisor errors may have been included. Yours sincerely, BRENNON Hanna Coding Level of Care Code Est Pt Level 4 (47298) Diagnoses Scrotal cyst L72.9 Urinary frequency R35.0 Family history of prostate cancer in father Z80.42
== END 2023-01-20 15:21 | disposition home or self-care (01) ==
PROVIDERS: PCP Physician Assistant; Visit Provider Nurse Practitioner Family
DX: L72.9 Follicular cyst of the skin and subcutaneous tissue, unspecified (principal); R35.0 Frequency of micturition; Z80.42 Family history of malignant neoplasm of prostate
CPT/HCPCS: 99214

== ENCOUNTER → 2023-01-20 14:06 | Outpatient (BNVA) | payer OTHER, SELFPAY | PROVIDERS: PCP Physician Assistant; Visit Provider Nurse Practitioner Family | DX: L72.9 Follicular cyst of the skin and subcutaneous tissue, unspecified (principal); R35.0 Frequency of micturition; Z80.42 Family history of malignant neoplasm of prostate | CPT/HCPCS: 81003 ==

== ENCOUNTER 2023-02-20 17:24 | Emergency (ER) | payer OTHER, SELFPAY ==
[2023-02-20 17:29] VITALS: BP 146/84; PULSE 76; RESP 16; TEMP 36.3; O2SAT 95
[2023-02-20 17:43] LABS: MANUAL DIFF FLAG NO
[2023-02-20 17:45] LABS: Appearance Urine Clear; Color Urine Dark Yellow; Glucose Urine UA Negative (Negative); Leukocyte Esterase Urine Trace (Negative); Nitrite Urine Negative (Negative); PH 6.5 (5.0-9.0); UMIC TRIGGER UACC YES; Urine Blood Negative (Negative); Urine Ketones Negative (Negative); Urine Protein Negative (Neg-Trace)
[2023-02-20 17:50] LABS: Bacteria Urine None Seen (None Seen); Hyaline Casts Urine 0-2 /LPF (0-2); RBC Urine 0-2 /HPF (0-2); Squamous Epithelial Cell Urine 0-2 /HPF (0-2); WBC Urine 0-5 /HPF (0-5)
[2023-02-20 17:51] LABS: Basophils Absolute Auto 0.1 X10*3/uL (0.0-0.2); Basophils Percent Auto 0.6 % (0-2); Eosinophils Absolute Auto 0.2 X10*3/uL (0.0-0.4); Eosinophils Percent Auto 1.7 % (0-4); Hematocrit 43.6 % (42.0-52.0); Hemoglobin 15.4 g/dl (14.0-18.0); Imm Gran Abs Auto 0.24 X10*3/uL (0.00-0.03); Imm Gran Pct Auto 2.2 % (0.0-0.4); Lymphocytes Absolute Auto 1.4 X10*3/uL (1.2-4.9); Lymphocytes Percent Auto 12.6 % (20-40); Mean Corpuscular HGB Conc 35.3 g/dl (31.0-36.0); Mean Corpuscular Volume 87.9 fL (80.0-98.0); Mean Platelet Volume 9.5 fL (9.4-12.4); Monocytes Absolute Auto 0.9 X10*3/uL (0.1-1.2); Monocytes Percent Auto 7.9 % (2-11); Neutrophils Absolute Auto 8.2 x10*3/uL (2.0-8.3); Platelet Count 299 X10*3/uL (160-400); Red Blood Count 4.96 X10*6/uL (4.60-5.80); Red Cell Distribution Width 11.7 % (11.0-16.0); White Blood Count 10.9 X10*3/uL (4.8-10.8)
[2023-02-20 18:04] LABS: Anion Gap 13 (12-20); Blood Urea Nitrogen 10 mg/dL (9-16); Calcium 9.3 mg/dL (8.4-10.2); Carbon Dioxide 27 mmol/L (22-29); Chloride 102 mmol/L (96-108); Estimated Glomerular Filt Rate > 60; Glucose Random 79 mg/dL (60-115); Sodium 138 mmol/L (135-145)
[2023-02-20 19:53] VITALS: BP 147/85; PULSE 66; RESP 18; TEMP 37.1; O2SAT 98
--- NOTE | 2023-02-20 20:57 | ED_ITS ---
HPI - Male Genitourinary General Chief complaint: Urogenital-Male Stated complaint: Uti? Time Seen by Provider: 02/20/23 20:56 Source: patient, RN notes reviewed and old records reviewed Mode of arrival: ambulatory History of Present Illness HPI Narrative: 53-year-old male with a past medical history arthritis, HLD, presenting to the ED complaining of dysuria, urinary frequency and incomplete emptying worsening over the past 2-3 days. Reports acute on chronic issue previously saw Urology and had outpatient studies which results are unknown to him. Denies testicular/scrotal pain, lesions, bleeding, concern for STI. Denies fever, chills, nausea/vomiting, abdominal pain, flank pain, hematuria. Is sexually active with 1 female partner. Related Data Previous Rx's Medication Instructions Recorded alfuzosin 10 mg tablet,extended 10 mg PO DAILY 30 days #30 tabs 01/20/23 release 24 hr phenazopyridine 200 mg tablet 200 mg PO TID PRN pain 6 doses #6 02/20/23 (Pyridium) tabs Allergies Allergy/AdvReac Type Severity Reaction Status Date / Time No Known Allergies Allergy Verified 02/20/23 17:29 [No Known Allergies*] Review of Systems 2 Review of Systems: Constitutional: No Fever, No Chills, No Fatigue, No Malaise ENT/Mouth: No Hearing loss, No Ear Pain, No sore throat, No Rhinorrhea, No Swallowing Difficulty Eyes: No Eye Pain, No Swelling, No Rednesses Cardiovascular: No Chest Pain, No SOB Respiratory: No Cough, No Sputum, No Dyspnea Gastrointestinal: No Nausea, No Vomiting, No Diarrhea, No Constipation, No Abdominal pain Genitourinary: No irregular bleeding, + Dysuria, + Urinary Frequency, No Hematuria, No Urinary Incontinence/retention, +Urgency, No Flank Pain, +Urinary Flow Changes, No Hesitancy Musculoskeletal: No joint pain, No Myalgias, No Joint Swelling Skin: No Skin Lesions, No rash Neuro: No Weakness,No Dizziness, No Headache Yes all other systems are reviewed and are negative Constitutional: Constitutional: Reports as per HPI [facility] Past Medical History Attestation statement: The following information was validated with the patient. Source: old records reviewed Medical History Arthritis Back pain Elevated cholesterol Surgical History Hx of colonoscopy H/O arthroscopic knee surgery History of foot surgery History of surgery on arm History of repair of rotator cuff Family History Family History Father Hypertension Prostate cancer Mother No problems noted. Social History Social History Household Members Other:: , 5 kids Housing: House Alcohol intake: current Alcohol intake frequency: a few times a week Alcohol type: beer Patient Tobacco Use Status: Never used Tobacco Tobacco use type: Cigarette Smoked in Last 30 Days: No e-Cigarette/Vaping Use: Never Used Second Hand Smoke Exposure: No Use of substances other than those prescribed or required for medical reasons: No Advance Directives: No Advance Directives Information Provided: No service: No Current occupational status: employed Current occupation: MAINTANCE Cognitive needs: No Hearing needs: No Vision needs: No Physical Exam 2 Vital Signs: Vital Signs: Last Vital Signs Temp 98.8 F 02/20/23 19:53 Pulse 66 02/20/23 19:53 Resp 18 02/20/23 19:53 BP 147/85 H 02/20/23 19:53 Pulse Ox 98 02/20/23 19:53 O2 Del Method Room Air 02/20/23 19:53 BMI result Body Mass Index 30.0 Const: General: cooperative, healthy appearing and no acute distress O rientation/consciousness: patient oriented x3 Limitations: no limitations HEENT: Head: Yes normal to inspection and Yes atraumatic Ears: hearing grossly normal bilaterally General nose exam: Normal external nose present Face and sinus: Yes normal facial exam Eyes: General: appearance normal, both eyes and all related structures EOM: EOMs intact bilaterally Neck: Neck: Yes normal visual inspection and Yes no meningeal signs Resp: Effort & Inspection: normal respiratory effort and no respiratory distress Auscultation: clear to auscultation bilaterally Cardio: Rate: regular rate Heart sounds: S1 normal heart sound present and S2 normal heart sound present GI: Inspection: Yes normal to inspection Palpation (GI): Soft to palpation, nontender, no guarding and not rigid : General: Yes no CVA tenderness Back/Spine/Pelvis: Back: no CVA tenderness Skin: Rashes: no rashes Wounds: no wounds Neuro: General: patient oriented x3, tone normal and no meningeal signs C ranial nerves: Yes CN's II-XII intact bilaterally Gait exam (Neuro): Normal gait present Extrem: General: Yes normal to inspection Course Course Course Narrative: -labs reassuring. Renal function WNL. -UA not infected >> CT NG sent. Postvoid residual 11ml Discussed with patient needed close follow-up with Urology for further imaging/workup. Will discharge home with pyridium Results discussed with patient including worrisome signs and symptoms and strict return precautions, and when to return to the emergency department. They verbalized understanding and feel safe for discharge at this time. Medical Decision Making Medical Decision Making [facility] Narrative: 53-year-old male with a past medical history arthritis, HLD, presenting to the ED complaining of dysuria, urinary frequency and incomplete emptying worsening over the past 2-3 days. On exam vital signs stable, NAD, nontoxic appearing, abdomen soft/nontender, no CVAT. exam deferred. Concern for UTI vs BPH vs cystitis vs ? STI. Lower suspicion for hernia, testicular torsion, pyelo, renal stone or appendicitis/diverticulitis Plan: Labs, UA, CT NG Ultrasound reviewed from 01/14/2023 patient had ultrasound of retroperitoneum which showed diffuse irregularity of bladder wall with large postvoid volume and enlarged prostate. Please refer to course for remaining clinical decision making, interpretation of labs/imaging results, and discussions with consultants and/or family members. Differential Diagnosis Differential Diagnoses: The differential diagnosis associated with the presentation includes As above Admission/Observation Consideration of admission/observation: Escalation of care including admission/observation considered Lab Data [facility] Lab Attestation statement: I reviewed the patient's lab results. 02/20/23 17:38 02/20/23 17:38 Labs: Lab Results 02/20/23 02/20/23 Range/Units 17:35 17:38 WBC 10.9 H (4.8-10.8) X10*3/uL RBC 4.96 (4.60-5.80) X10*6/uL Hgb 15.4 (14.0-18.0) g/dl Hct 43.6 (42.0-52.0) % MCV 87.9 (80.0-98.0) fL MCH 31.0 (27.0-33.0) pg MCHC 35.3 (31.0-36.0) g/dl RDW 11.7 (11.0-16.0) % Plt Count 299 (160-400) X10*3/uL MPV 9.5 (9.4-12.4) fL Immature Gran % (Auto) 2.2 H (0.0-0.4) % Neut % (Auto) 75.0 H (45-73) % Lymph % (Auto) 12.6 L (20-40) % Yates % (Auto) 7.9 (2-11) % Eos % (Auto) 1.7 (0-4) % Baso % (Auto) 0.6 (0-2) % Lymph # (Auto) 1.4 (1.2-4.9) X10*3/uL Yates # (Auto) 0.9 (0.1-1.2) X10*3/uL Eos # (Auto) 0.2 (0.0-0.4) X10*3/uL Baso # (Auto) 0.1 (0.0-0.2) X10*3/uL Abs Immat Gran (auto) 0.24 H (0.00-0.03) X10*3/uL Absolute Neuts (auto) 8.2 (2.0-8.3) x10*3/uL Absolute Nucleated RBC 0.000 (0.0-0.012) X10*3/uL Nucleated RBC % (auto) 0.0 (0.0-0.2) /100WBC Sodium 138 (135-145) mmol/L Potassium 4.0 (3.3-5.1) mmol/L Chloride 102 (96-108) mmol/L Carbon Dioxide 27 (22-29) mmol/L Anion Gap 13 (12-20) BUN 10 (9-16) mg/dL Creatinine 0.95 (0.5-1.4) mg/dL Estim Creat Clear Calc 109.0 Estimated GFR > 60 Random Glucose 79 (60-115) mg/dL Calcium 9.3 (8.4-10.2) mg/dL Urine Color Dark Yellow Urine Appearance Clear Urine pH 6.5 (5.0-9.0) Ur Specific [place] 1.010 (1.005-1.025) Urine Protein Negative (Neg-Trace) mg/dL Urine Glucose (UA) Negative (Negative) mg/dL Urine Ketones Negative (Negative) mg/dL Urine Blood Negative (Negative) Urine Nitrite Negative (Negative) Ur Leukocyte Esterase Trace H (Negative) Urine RBC 0-2 (0-2) /HPF Urine WBC 0-5 (0-5) /HPF Ur Squamous Epith Cells 0-2 (0-2) /HPF Urine Bacteria None Seen (None Seen) Hyaline Casts 0-2 (0-2) /LPF External Record Review External record reviewed: Inpatient record, Office record, Outpatient record, Prior outpatient labs, Prior outpatient radiology, Primary care record and Outside ED record Tests considered The following testing was considered but not selected: As above Prescription Management I considered prescription management with: Pain Medication Discharge Plan Discharge Clinical Impression: Urinary frequency, Cystitis Patient Disposition: Home, Self-Care Instructions: Urinary Urgency and Frequency (DC) Additional Instructions: Your blood work and urine were reassuring. Your urine does not look infected Please follow-up with your urologist. Pyridium will help with urinary discomfort, if symptoms persist or worsen you develop abdominal pain, back pain, fever or your unable to urinate return to the emergency department Prescriptions: New phenazopyridine [Pyridium] 200 mg tablet 200 mg PO TID PRN (Reason: pain) Qty: 6 0RF No Action alfuzosin 10 mg tablet extended release 24 hr 10 mg PO DAILY 30 Days Qty: 30 1RF Rx Instructions: administer after the same meal each day Referrals: [facility] [place] [facility] Services [Provider Group] - 5 days Michel Kemp PA-C [Primary Care Provider] - 3 days
[2023-02-20 21:55] VITALS: PULSE 63; RESP 16; O2SAT 98
[2023-02-21 05:53] LABS: CT PCR NOT DETECTED (Not Detect.); NG PCR NOT DETECTED (Not Detect.)
== END 2023-02-20 22:12 | disposition home or self-care (01) ==
PROVIDERS: Physician Assistant; Emergency Provider Emergency Medicine; PCP Physician Assistant
DX: N30.90 Cystitis, unspecified without hematuria (principal); R35.0 Frequency of micturition; R30.0 Dysuria; Z72.89 Other problems related to lifestyle
CPT/HCPCS: 0353U; 36415; 80048; 81001; 85025; 99283; 99285

== ENCOUNTER 2023-04-04 14:48 | Outpatient (REF) | payer OTHER, SELFPAY ==
--- NOTE | ~2023-04-04 | US_ITS ---
EXAMINATION: US SCROTUM CLINICAL INFORMATION: Scrotal cyst, otherwise unspecified history. COMPARISON: Scrotal ultrasound 02/22/2019. TECHNIQUE: A sonogram of the scrotum was performed assessing fuller-scale appearance and color Doppler flow. Spectral Doppler analysis of the arterial and venous flow were performed in the testes bilaterally. FINDINGS: RIGHT: Right testicle measures 5.3 x 2.5 x 3.3 cm, volume 21.7 mL. No focal testicular parenchymal lesions are visualized. Spectral Doppler analysis of the arterial and venous flow is normal in the right testis. Two simple appearing epididymal head cyst are seen measuring up to 0.6 cm with an exophytic 0.3 cm cyst. Right epididymal Doppler flow is normal. Small hydrocele. Large varicocele. LEFT: Left testicle measures 5.1 x 2.3 x 3.2 cm, volume 19.4 mL. No focal testicular parenchymal lesions are visualized. Spectral Doppler analysis of the arterial and venous flow is normal in the left testis. Subcentimeter simple appearing epididymal head cyst measuring 0.4 cm. Left epididymal Doppler flow is normal. Small hydrocele. Large varicocele. US/US scrotum IMPRESSION: 1. Large bilateral varicoceles. 2. Small bilateral hydroceles. 3. Simple appearing bilateral epididymal head cysts.
== END 2023-04-04 14:49 | disposition home or self-care (01) ==
LOC: HO.US 14:48
PROVIDERS: PCP Physician Assistant; Visit Provider Nurse Practitioner Family
DX: L72.9 Follicular cyst of the skin and subcutaneous tissue, unspecified (principal)
CPT/HCPCS: 76870

== ENCOUNTER 2023-04-20 08:13 | Outpatient (AMB) | payer OTHER, SELFPAY ==
--- NOTE | 2023-04-20 08:31 | MHC.OFFVIS ---
Intake Intake Visit Reasons: 6 week follow up/ PVR/US(set) Intake Note: Patient presents for follow up visit for scrotal cyst, frequency, and ultrasound results Imagin04/04/23 Urology Medications: Alfuzosin (patient ran out of medication) Blood Thinner: none PVR: 54ml's Assistant Distribution Manager Required: No Accompanied by: Self / Same As Patient Allergies No Known Allergies [No Known Allergies*] Allergy (Verified 04/20/23 10:14) Medication List - Last Reconciled 04/20/23 by BRENNON Hanna alfuzosin ER 10 mg PO DAILY 90 days tadalafil (Cialis) 5 mg PO DAILY 90 days HPI HPI Comments History of Present Illness Details Tim is a pleasant 53-year-old male patient of Dr. Kemp. He has a past medical history of arthritis, back pain, and hypercholesteremia. He presents to the office today for follow-up. Of note, patient was seen approximately 6 weeks ago at which time he was started on alfuzosin 10 mg for urinary frequency, urinary urgency, and intermittent episodes of nocturia. In discussion with the patient today he reports noting improvement in these lower urinary tract symptoms and is requesting refill on alfuzosin. Previous workup has included a retroperitoneal ultrasound noting bilateral kidneys with no hydronephrosis or renal calculi noted. The bladder is well distended. Mild diffuse irregularity of the bladder wall. Bilateral ureteral jets are demonstrated. Pre void bladder volume is approximately 525 mL. Postvoid bladder volume is approximately 180 mL. Prostate volume is approximately 47 mL. PSAs are as follows 02/24--1.2 10/27--2.1 01/27--1.4 During last office visit scrotal ultrasound was ordered for further surveillance of epididymal head cyst and these results were reviewed with the patient today. Scrotal ultrasound noting large bilateral varicoceles, small bilateral hydroceles, and simple appearing bilateral epididymal head cysts. Discussed at length potential causes and treatment options for varicoceles, hydroceles, and epididymal head cyst. He reports scrotal discomfort he experiences is infrequent will continue with surveillance monitoring. He does discussed noting issues with obtaining and maintaining his erections. When asked he feels he does not have sexual desire. Discussed further workup with testosterone free and total. Discussed at length potential causes of erectile dysfunction. He otherwise denies incontinence, hematuria, foul smelling urine, changes to urinary stream, flank pain, fever, and or chills. He previously trialed Flomax and did not feel this was beneficial and noted no improvement in urinary symptoms. In office urinalysis results reviewed with the patient today PVR 54ml's. He otherwise offers no other issues or concerns at this time. [facility] Medical History Arthritis Back pain Elevated cholesterol Surgical History Hx of colonoscopy H/O arthroscopic knee surgery History of foot surgery History of surgery on arm History of repair of rotator cuff Family History Father Hypertension Prostate cancer Mother No problems noted. Social History Household Members Other:: , 5 kids Housing: House Alcohol intake: current Alcohol intake frequency: a few times a week Alcohol type: beer Patient Tobacco Use Status: Never used Tobacco Tobacco use type: Cigarette e-Cigarette/Vaping Use: Never Used Second Hand Smoke Exposure: No service: No Current occupational status: employed Current occupation: MAINTANCE Cognitive needs: No Hearing needs: No Vision needs: No Review of Systems Const Reports as per HPI Eyes Reports no additional complaints ENT Reports no additional complaints Card Reports as per HPI Resp Reports no additional complaints GI Reports no additional complaints Reports as per HPI Musc Reports as per HPI Neuro Reports no additional complaints Psych Reports no additional complaints Endo Reports no additional complaints Jaxon/Lymph Reports no additional complaints Aller/Immun Reports no additional complaints Physical Exam Const General: cooperative, healthy appearing, comfortable, no acute distress, well developed, alert and awake Orientation/consciousness: patient oriented x3 Limitations: no limitations HEENT Head: Yes normal to inspection, Yes normocephalic and Yes atraumatic Ears: hearing grossly normal bilaterally Eyes General: appearance normal, both eyes and all related structures Neck Neck: Yes normal visual inspection and Yes trachea midline Chest Chest palpation & inspection: normal inspection of the chest Resp Effort & Inspection: normal respiratory effort and able to speak in complete sentences Cardio Rate: regular rate GI Inspection: Yes normal to inspection General: Yes no CVA tenderness Back/Spine/Pelvis Back: no CVA tenderness Skin General skin exam: no rashes or lesions noted Neuro General: patient oriented x3 Extrem General: Yes normal to inspection Psych Appearance: grossly normal and well kempt Mental Status: mental status grossly normal Speech and movement: Normal speech and movement present and Clear speech present Affect: normal affect Attitude: cooperative Thought process: Normal thought process present Thought content: Normal thought content present Insight: Fair insight present (Psych) Judgement: Fair judgement present (Psych) Office Procedures Post Void Residual Post Residual Void Post Void Residual (PVR): 54 [id number] Void Residual by ultrasound Results AMB Urinalysis, Automated UA Leukoctes 0 Corey/uL Last Edit by [employer] on 04/20/23 08:47 UA Nitrite Negative Last Edit by [employer] on 04/20/23 08:47 UA Urobilinogen 0.2 mg/dL Last Edit by [employer] on 04/20/23 08:47 UA Protein 0 mg/dL Last Edit by [employer] on 04/20/23 08:47 UA pH 6.0 Last Edit by [employer] on 04/20/23 08:47 UA Blood 0 Archie/uL Last Edit by [employer] on 04/20/23 08:47 UA Specific [place] 1.015 Last Edit by [employer] on 04/20/23 08:47 UA Ketone Negative Last Edit by [employer] on 04/20/23 08:47 UA Bilirubin 0 mg/dL Last Edit by [employer] on 04/20/23 08:47 UA Glucose 0 mg/dL Last Edit by [employer] on 04/20/23 08:47 Results Reviewed Results Reviewed: Laboratory Last Values Urine pH (Auto) 6.0 04/20/23 08:35 Specific [place] (Auto) 1.015 04/20/23 08:35 Urine Protein (Auto) 0 mg/dL 04/20/23 08:35 Glucose (UA)(Auto) 0 mg/dL 04/20/23 08:35 Urine Ketones (Auto) Negative 04/20/23 08:35 Urine Blood (Auto) 0 Archie/uL 04/20/23 08:35 Urine Nitrite (Auto) Negative 04/20/23 08:35 Urine Bilirubin (Auto) 0 mg/dL 04/20/23 08:35 Urine Urobilinogen (Auto) 0.2 mg/dL 04/20/23 08:35 Leukocyte Esterase (Auto) 0 Corey/uL 04/20/23 08:35 Date of Service: 04/04/23 EXAMINATION: US SCROTUM FINDINGS: RIGHT: Right testicle measures 5.3 x 2.5 x 3.3 cm, volume 21.7 mL. No focal testicular parenchymal lesions are visualized. Spectral Doppler analysis of the arterial and venous flow is normal in the right testis. Two simple appearing epididymal head cyst are seen measuring up to 0.6 cm with an exophytic 0.3 cm cyst. Right epididymal Doppler flow is normal. Small hydrocele. Large varicocele. LEFT: Left testicle measures 5.1 x 2.3 x 3.2 cm, volume 19.4 mL. No focal testicular parenchymal lesions are visualized. Spectral Doppler analysis of the arterial and venous flow is normal in the left testis. Subcentimeter simple appearing epididymal head cyst measuring 0.4 cm. Left epididymal Doppler flow is normal. Small hydrocele. Large varicocele. IMPRESSION: 1. Large bilateral varicoceles. 2. Small bilateral hydroceles. 3. Simple appearing bilateral epididymal head cysts. Assessment & Plan Assessment & Plan (1) Low libido: Code(s): R68.82 - Decreased libido (2) Lower urinary tract symptoms (LUTS): Code(s): R39.9 - Unspecified symptoms and signs involving the genitourinary system (3) Bilateral hydrocele: Code(s): N43.3 - Hydrocele, unspecified Plan In office urinalysis results reviewed with the patient today; as noted above. PVR 54 mL. Will continue alfuzosin 10 mg as discussed and prescribed as patient reports significant improvement in lower urinary tract symptoms. Start Cialis 5 mg daily; as discussed and prescribed. Will obtain testosterone free and total for further assessment evaluation. Recent scrotal ultrasound results reviewed with the patient today; as noted above. Discussed at length potential causes and treatment options of hydroceles, varicoceles, and epididymal head cyst; will continue with surveillance monitoring at this time. Follow-up in 2-4 weeks with lab to be completed prior; or sooner with any issues, concerns, and or questions. Orders: Orders AMB Post Void Residual by ultrasound Today R35.0 - Frequency of micturition Testosterone, Free/Total Today R68.82 - Decreased libido AMB Urinalysis Automated Today Z13.9 - Encounter for screening, unspecified Prostate Specific Antigen 6 Months R39.9 - Unspecified symptoms and signs involving the genitourinary system Medications: New tadalafil (Cialis) [id number] [facility] [id number] Member [id number] 5 mg PO DAILY 90 tabs 3RF 90 days Changed From alfuzosin ER administer after the same meal each day 10 mg PO DAILY 30 days 30 tabs 1RF N13.8 - Other obstructive and reflux uropathy, N40.1 - Benign prostatic hyperplasia with lower urinary tract symptoms To alfuzosin ER administer after the same meal each day 10 mg PO DAILY 90 tabs 3RF 90 days N13.8 - Other obstructive and reflux uropathy, N40.1 - Benign prostatic hyperplasia with lower urinary tract symptoms Coding Level of Care Code Est Pt Level 4 (33613) Diagnoses Low libido R68.82 Lower urinary tract symptoms (LUTS) R39.9 Bilateral hydrocele N43.3 CPT Codes Post Residual Void - PVR CPT Code: 61990-Wfuo Void Residual by ultrasound ([id number])
== END 2023-04-20 09:09 | disposition home or self-care (01) ==
PROVIDERS: PCP Physician Assistant; Visit Provider Nurse Practitioner Family
DX: R68.82 Decreased libido (principal); R39.9 Unspecified symptoms and signs involving the genitourinary system; N43.3 Hydrocele, unspecified
CPT/HCPCS: 99214

== ENCOUNTER → 2023-04-20 08:13 | Outpatient (BNVA) | payer OTHER, SELFPAY | PROVIDERS: PCP Physician Assistant; Visit Provider Nurse Practitioner Family | DX: R68.82 Decreased libido (principal); R39.9 Unspecified symptoms and signs involving the genitourinary system; R35.0 Frequency of micturition; N43.3 Hydrocele, unspecified; Z79.899 Other long term (current) drug therapy | CPT/HCPCS: 51798; 81003 ==

== ENCOUNTER 2023-04-26 06:34 | Outpatient (REF) | payer OTHER, SELFPAY ==
[2023-05-01 09:18] LABS: Testosterone, Free 85.7 pg/mL (35.0-155.0); Testosterone, Total 435 ng/dL (250-1100)
== END 2023-04-26 06:35 | disposition home or self-care (01) ==
LOC: HO.LAB 06:34
PROVIDERS: PCP Physician Assistant; Visit Provider Nurse Practitioner Family
DX: R68.82 Decreased libido (principal)
CPT/HCPCS: 36415; 84402; 84403

== ENCOUNTER 2023-05-10 08:45 | Outpatient (AMB) | payer OTHER, SELFPAY ==
--- NOTE | 2023-05-10 08:45 | A.OFFVIS_ITS ---
Intake Intake Visit Reasons: 3w/testo (confirmed) Intake Note: Patient presents for Tele Visit follow up visit for low libido and lab results Total Testosterone: 435 Free Testosterone: 85.7 Urology Medications: Alfuzosin, Cialis Blood Thinner: None Fruit Peeler Required: No Accompanied by: Self / Same As Patient Allergies No Known Allergies [No Known Allergies*] Allergy (Verified 05/10/23 14:34) Medication List - Last Reconciled 05/10/23 by BERNICE Hanna- alfuzosin ER 10 mg PO DAILY 90 days tadalafil (Cialis) 5 mg PO DAILY 90 days HPI HPI Comments History of Present Illness Details Tim is a pleasant 53-year-old male patient of Dr. Kemp. He has a past medical history of arthritis, back pain, and hypercholesteremia. He is being follow-up via telehealth today for his ongoing lower urinary tract symptoms. In discussion with the patient today he reports noting significant improvement in nocturia since starting alfuzosin 10 mg daily. He reports also noting significant improvement in maintaining his erections with 5 mg of Cialis daily. Recent testosterone results reviewed with the patient today. 04/30--total testosterone: 435, free test osterone: 85.7. Previous workup has included a retroperitoneal ultrasound noting bilateral kidneys with no hydronephrosis or renal calculi noted. The bladder is well distended. Mild diffuse irregularity of the bladder wall. Bilateral ureteral jets are demonstrated. Pre void bladder volume is approximately 525 mL. Postvoid bladder volume is approximately 180 mL. Prostate volume is approximately 47 mL. PSAs are as follows 02/24--1.2 10/27--2.1 01/27--1.4 Patient also with a history of surveillance monitoring for epididymal head cysts. Scrotal ultrasound noting large bilateral varicoceles, small bilateral hydroceles, and simple appearing bilateral epididymal head cysts. Discussed at length potential causes and treatment options for varicoceles, hydroceles, and epididymal head cyst. He reports scrotal discomfort he experiences is infrequent will continue with surveillance monitoring. He otherwise denies incontinence, hematuria, foul smelling urine, changes to urinary stream, flank pain, fever, and or chills. He previously trialed Flomax and did not feel this was beneficial and noted no improvement in urinary symptoms. He otherwise offers no other issues or concerns at this time. [facility] Medical History Arthritis Back pain Elevated cholesterol Surgical History Hx of colonoscopy H/O arthroscopic knee surgery History of foot surgery History of surgery on arm History of repair of rotator cuff Family History Father Hypertension Prostate cancer Mother No problems noted. Social History Household Members Other:: , 5 kids Housing: House Alcohol intake: current Alcohol intake frequency: a few times a week Alcohol type: beer Patient Tobacco Use Status: Never used Tobacco Tobacco use type: Cigarette e-Cigarette/Vaping Use: Never Used Second Hand Smoke Exposure: No service: No Current occupational status: employed Current occupation: MAINTANCE Cognitive needs: No Hearing needs: No Vision needs: No Review of Systems Const Reports as per HPI Eyes Reports no additional complaints ENT Reports no additional complaints Card Reports as per HPI Resp Reports no additional complaints GI Reports no additional complaints Reports as per HPI Musc Reports as per HPI Neuro Reports no additional complaints Psych Reports no additional complaints Endo Reports no additional complaints Jaxon/Lymph Reports no additional complaints Aller/Immun Reports no additional complaints Physical Exam Const General: cooperative, healthy appearing, comfortable, no acute distress, well developed, alert and awake Orientation/consciousness: patient oriented x3 Resp Effort & Inspection: normal respiratory effort and able to speak in complete sentences Neuro General: patient oriented x3 Psych Appearance: grossly normal and well kempt Mental Status: mental status grossly normal Speech and movement: Clear speech present Affect: normal affect Attitude: cooperative Thought process: Normal thought process present Thought content: Normal thought content present Insight: Fair insight present (Psych) Judgement: Fair judgement present (Psych) Assessment & Plan Assessment & Plan (1) Family history of prostate cancer in father: Code(s): Z80.42 - Family history of malignant neoplasm of prostate Plan Recent labs reviewed with the patient today; as noted above. Patient reports be happy with current voiding parameters on 10 mg of alfuzosin daily; refill provided as requested. Patient reports significant improvement in maintenance of erections with 5 mg of Cialis daily; will continue; refill provided. He currently denies any bothersome urinary issues or concerns. PSA and testosterone in 6 months; he does have a family history of prostate cancer therefore discussed interval surveillance imaging every 4-6 months for closer monitoring. Follow-up in 6 months with labs to be completed prior; or sooner with any issues, concerns, and or questions. Orders: Orders Testosterone, Free/Total 6 Months E11.69 - Type 2 diabetes mellitus with other specified complication, N52.1 - Erectile dysfunction due to diseases classified elsewhere Prostate Specific Antigen 6 Months Z80.42 - Family history of malignant neoplasm of prostate Medications: Refilled alfuzosin ER administer after the same meal each day 10 mg PO DAILY 90 days 90 tabs 3RF N13.8 - Other obstructive and reflux uropathy, N40.1 - Benign prostatic hyperplasia with lower urinary tract symptoms tadalafil (Cialis) [id number] [facility] [id number] Member [id number] 5 mg PO DAILY 90 days 90 tabs 3RF Patient Instructions: The patient had an opportunity to ask questions regarding the treatment plan. All questions were answered. Physical exam, labs, and imaging were discussed and reviewed in detail. As well as risks, benefits, and discussion of treatment choices. No major barriers to understanding were identified. The patient expr essed understanding and agreement with the above treatment plan. The patient was made aware they should contact our office by phone for worsening of their current condition, the appearance of new symptoms, or with any questions or concerns. Compliance is encouraged with any medications and follow up testing that is ordered. It is a privilege to be allowed the opportunity to participate in? your urological care.? Again, if you have any questions or concerns If you have any questions or concerns please do not hesitate to contact me. The office is [phone]. This note is constructed using voice recognition software. While every effort has been made to ensure accuracy dough mixing machine operator errors may have been included. Yours sincerely, BERNICE Hanna- Telehealth Telehealth Location of provider rendering services: practice address Location of patient: address on file Patient Identification confirmed using: Name, : Yes Telehealth method: video Patient verbally consented to treatment: Yes Patient verbally consented to billing insurance company: Yes Patient informed of any privacy concerns related to visit: Yes Minutes spent on Phone/Video with Pt.: 15 Coding Level of Care Code Tele Est Pt Level 3 (11139) Diagnoses Family history of prostate cancer in father Z80.42
== END 2023-05-10 10:08 | disposition home or self-care (01) ==
LOC: HO.HUSH 08:45
PROVIDERS: PCP Physician Assistant; Visit Provider Nurse Practitioner Family
DX: Z80.42 Family history of malignant neoplasm of prostate (principal)
CPT/HCPCS: 99213

== ENCOUNTER → 2023-05-10 08:45 | Outpatient (BNVA) | payer OTHER, SELFPAY | PROVIDERS: PCP Physician Assistant; Visit Provider Nurse Practitioner Family ==

== ENCOUNTER 2023-05-24 15:39 | Outpatient (AMB) | payer OTHER, SELFPAY ==
[2023-05-24 16:03] VITALS: BP 146/92; PULSE 60; RESP 16; O2SAT 9
--- NOTE | 2023-05-24 16:03 | MHC.PC.OV ---
Vital Signs 05/24/23 16:03 Height 6 ft Weight 221 lb 6 oz BMI 30.0 BP 146/92 H Blood Pressure Location Lt brachial Position Sitting Respiration 16 Pulse 60 Pulse Source Pulse Oximeter Pulse Oximetry (%) 9 L Oxygen Delivery Method Room Air Intake Visit Reasons: Physical Exam Intake Note: Patient is here today for a physical. Used [employer] Worker Required: No Accompanied by: Self / Same As Patient Allergies No Known Allergies [No Known Allergies*] Allergy (Verified 05/24/23 16:24) Medication List - Last Reconciled 05/24/23 by Michel Kemp PA-C alfuzosin ER 10 mg PO DAILY 90 days tadalafil (Cialis) 5 mg PO DAILY 90 days Tobacco use date assessed: 05/24/23 Dental Screening Dental Screen Date: 05/24/23 Did you have a dental visit in the last 12 months?: Yes Did you have a dental problem in the last 6 months where you did not have access to dental care?: No Was dental information given to patient?: Patient has dentist HPI Physical Exam HPI Details Patient is a 53-year-old male here today for routine annual physical. .? Patient has a past medical history significant for hyperlipidemia, obesity,. Concerns--> has followed up with urologist due to his low libido, testosterone level is normal. Has been started on a few Zosyn and Cialis. .. Hyperlipidemia:? Most recently Lipid panel improved with lifestyle changes. Has yet to get repeat fasting lipids. .. Elevated blood pressure reading: Noted elevated blood pressure reading today in office. He reports he has been under lot of stress due to family issues. He will try to monitor blood pressure at home. He has not interested in starting medication for his blood pressure at this time would like to work on lifestyle modifications. .. Colorectal cancer screening: Done in 2021, normal colonoscopy repeat 10 years Vaccines: Up-to-date with tetanus vaccine, declines flu vaccine. Declines COVID vaccine. Needs Shingles vaccine. Laboratory Tests 01/07/23 04/26/23 09:14 06:53 Total PSA 1.36 Total Testosterone 435 [facility] Medical History (Updated 05/25/23 @ 11:04 by Michel Kemp PA-C) Bilateral hydrocele Scrotal cyst Internal hemorrhoids Arthritis Back pain Elevated cholesterol Surgical History Hx of colonoscopy H/O arthroscopic knee surgery History of foot surgery History of surgery on arm History of repair of rotator cuff Family History Father Hypertension Prostate cancer Mother No problems noted. Social History (Updated 05/24/23 @ 16:29 by Michel Kemp PA-C) Household Members Other:: , 5 kids Housing: House Alcohol intake: current Alcohol intake frequency: a few times a week Alcohol type: beer Patient Tobacco Use Status: Never used Tobacco Tobacco use type: Cigarette e-Cigarette/Vaping Use: Never Used Second Hand Smoke Exposure: No service: No Current occupational status: employed Current occupation: MAINTANCE Cognitive needs: No Hearing needs: No Vision needs: No Questionnaire PHQ-9 Over the last 2 weeks, how often have you been bothered by any of the following problems? 1. Little interest or pleasure in doing things: not at all 2. Feeling down, depressed, or hopeless: not at all 3. Trouble falling or staying asleep, or sleeping too much: not at all 4. Feeling tired or having little energy: not at all 5. Poor appetite or overeating: not at all 6. Feeling bad about yourself - or that you are a failure or have let yourself or your family down: not at all 7. Trouble concentrating on things, such as reading the newspaper or watching television: not at all 8. Moving or speaking so slowly that other people could have noticed. Or the opposite - being so fidgety or restless that you have been moving around a lot more than usual: not at all 9. Thoughts that you would be better off or of hurting yourself in some way: not at all Total score: 0 Depression Screening Interpretation: Negative Depression Screening Done: Yes 70604 - PHQ-9 Billing: Yes Source: Developed by Drs. Jorge A Reilly, Mary Cook, Harrison Avila and colleagues, with an educational jade from [employer]. Thrive Questionnaire Date Thrive assessed: 05/24/23 I am a: Patient What is your living situation today?: I have a steady place to live Within the past 12 months, did the food you bought not last and you didn't have the money to get more?: Never true Within the past 12 months, did you worry whether your food would run out before you got money to buy more?: Never true Do you have trouble paying for medicines?: No Do you have trouble getting transportation to medical appointments?: No Do you have trouble paying your heating and electricity bill?: No Do you have trouble taking care of your child, family member or friend?: No Do you have trouble with day-to-day activities such as bathing, preparing meals, shopping, managing finances, etc.?: No Are you currently unemployed and looking for a job?: No Are you interested in more education?: No Please select the resources that you would like help with: None Currently or been in a relationship where the following occur: no concerns reported THRIVE Score: 0 AUDIT C Alcohol Use Questionnaire (AUDIT-C) 1. How often do you have a drink containing alcohol?: 2-4 times a month 2. How many drinks containing alcohol do you have on a typical day when you are drinking?: 1 or 2 3. How often do you have six or more drinks on one occasion?: Never Total Score: 2 PAWEL-7 AMB Questionnaire PAWEL-7 Date PAWEL - 7 assessed: 05/24/23 Feeling nervous, anxious, or on edge: 0 = Not at all Not being able to stop or control worryin = Not at all Worrying too much about different things: 0 = Not at all Trouble relaxin = Not at all Being so restless that it is hard to sit still: 0 = Not at all Becoming easily annoyed or irritable: 0 = Not at all Feeling afraid as if something awful might happen: 0 = Not at all Total PAWEL-7 score (0-4 normal; 5-9 mild; 10-14 moderate; 15-21 severe): 0 Source: Developed by Drs. Jorge A Reilly, Mary Cook, Harrison Avila and colleagues, with an educational jade from [employer]. PAWEL-7 Assessment Billing PAWEL-7 Assessment Tool: PAWEL-7 Assessment 71918 Review of Systems Const Denies body aches, Denies chills, Denies excessive sweating, Denies fatigue, Denies fever(s) and Denies headache(s) Eyes Denies blurry vision ENT Denies dysphagia, Denies vertigo, Denies dizziness, Denies headache(s), Denies hearing loss and Denies tinnitus Card Denies chest pain, Denies chest pain with activity, Denies syncope, Denies irregular heart rhythm and Denies dyspnea Resp Denies chest congestion, Denies cough, Denies hemoptysis, Denies dyspnea and Denies wheezing GI Denies abdominal pain, Denies melena, Denies hematochezia, Denies coffee ground emesis, Denies dysphagia, Denies diarrhea, Denies nausea and Denies vomiting Denies difficulty urinating, Denies dysuria, Denies urinary frequency, Denies urinary hesitancy and Denies urinary urgency Musc Denies arthralgias, Denies limited range of motion, Denies muscle cramps and Denies muscle weakness Skin/Breast Denies rash and Denies skin ulcer Neuro Denies Abnormal speech present, Denies confusion, Denies vertigo, Denies dizziness, Denies syncope, Denies headache(s), Denies memory loss and Denies seizure-like activity Psych Denies anxiety, Denies confusion, Denies depression, Denies memory loss, Denies panic attacks and Denies paranoia Endo Denies excessive sweating, Denies fatigue, Denies flushing, Denies polydipsia and Denies polyuria Aller/Immun Denies wheezing Physical exam (Primary Care) Vital Signs: Last Vital Signs Pulse 60 05/24/23 16:03 Resp 16 05/24/23 16:03 BP 146/92 H 05/24/23 16:03 Pulse Ox 9 L 05/24/23 16:03 Oxygen Delivery Method Room Air 05/24/23 16:03 BMI result Body Mass Index 30.0 BMI Assessment/Plan discussion: High Tobacco/Smoking Status: Tobacco use Status Tobacco use date assessed 05/24/23 05/24/23 16:09 Patient Tobacco Use Status Never used Tobacco 05/24/23 16:29 Tobacco use type Cigarette 05/24/23 16:29 e-Cigarette/Vaping Use Never Used 05/24/23 16:29 PHQ-9: PHQ-9 Score PHQ-9: Total score 0 05/24/23 16:30 Depression Screening Interpretation: Negative Thrive Assessment: Date of Thrive Assessment Date Thrive assessed 05/24/23 05/24/23 16:09 Currently or been in a relationship where the following occur: no concerns reported Const Other: Obese General: cooperative, comfortable, no acute distress, alert and awake; No confusion Orientation/consciousness: oriented to person, oriented to place, patient oriented x3 and No confusion HENMT Head: Yes normocephalic Ears: external ears normal and TM's normal bilaterally Face and sinus: No sinus tenderness Mouth: Normal oral and palatal mucosa present and tongue normal Teeth and gingiva: dentition normal and gingiva normal Throat: Yes posterior oropharynx normal, Yes tonsils normal and Yes uvula midline Eyes Conjunctivae: conjunctivae normal Sclerae: sclerae normal Pupils: Equal, round and reactive pupils present EOM: EOMs intact bilaterally Direct Ophthalmoscopy: No no photophobia Neck Neck: Yes no lymphadenopathy, No tender and Yes no JVD Thyroid: Thyroid normal Carotids: no bruits Chest Chest palpation & inspection: no tenderness Resp Effort & Inspection: normal respiratory effort, no audible wheezes, not labored and no stridor Auscultation: no crackles, no rales, no rhonchi and no wheezes Cardio Jugular venous distension: no JVD Rate: regular rate, not bradycardic and not tachycardic Rhythm: regular rhythm Bruits: no carotid bruits Peripheral pulses: Peripheral pulses 2+ throughout GI Inspection: Yes normal to inspection, No abdominal wall ecchymosis and No visible herniation Palpation (GI): Soft to palpation, nontender, no guarding, not rigid and No hepatosplenomegaly present Auscultation: normoactive bowel sounds General: Yes no CVA tenderness Back/Spine/Pelvis Back: no CVA tenderness and No back tenderness Cervical Spine: cervical ROM normal Thoracic/Lumbar Spine: thoracic and lumbar spine normal to inspection, straight leg raise negative bilaterally, No thoraco-lumbar ROM limited and No lumbar spinal tenderness Skin Lesions: no lesions Rashes: no rashes Wounds: no wounds Neuro General: oriented to person, oriented to place, patient oriented x3, CN's II-XI intact bilaterally and No confusion Cranial nerves: Yes Equal, round and reactive pupils present and Yes Normal accommodation reflex present Cognition (Neuro): normal cognition Speech: No Abnormal speech present Gait exam (Neuro): Normal gait present Motor exam (neuro): 5/5 motor strength present throughout Extrem Right upper extremity: full ROM; no cyanosis Left upper extremity: full ROM; no cyanosis Right lower extremity: no edema Left lower extremity: no edema Psych Appearance: grossly normal Mental Status: mental status grossly normal Affect: normal affect Attitude: cooperative Thought process: Normal thought process present Assessment and Plan Assessment & Plan (1) Annual physical exam: Code(s): Z00.00 - Encounter for general adult medical examination without abnormal findings (2) Obese: Code(s): E66.9 - Obesity, unspecified Qualifiers: Body mass index: BMI 30.0-30.9 Obesity classification: adult class 1 (BMI 30 - 34.9) Obesity type: due to excess calories Serious obesity comorbidity presence: without serious comorbidity Qualified Code(s): E66.09 - Other obesity due to excess calories; Z68.30 - Body mass index [BMI] 30.0-30.9, adult Plan: Patient does understand his BMI is over 30 will work on being more physically active and adapting to better eating habits to reduce his weight. (3) Low libido: Code(s): R68.82 - Decreased libido Plan: Patient is followed by Urology, has been started on alfuzosin and does use Cialis on a p.r.n. basis. Most recent testosterone levels normal. (4) Elevated blood pressure reading: Code(s): R03.0 - Elevated blood-pressure reading, without diagnosis of hypertension Plan: Noted elevated blood pressure readings today in office. He does report he has been under more stress as of late. He will start tracking his blood pressure at home with goal blood pressure to be below 140/90 (5) Hyperlipidemia: Code(s): E78.5 - Hyperlipidemia, unspecified Qualifiers: Hyperlipidemia type: mixed hyperlipidemia Qualified Code(s): E78.2 - Mixed hyperlipidemia Plan: Patient's most recent lipid panel showing elevated total cholesterol. He was to work on lifestyle modifications and dietary modifications. Will recheck fasting lipids with goal cholesterol be below 200 Orders: Orders Lipid Panel 05/24/23 E78.2 - Mixed hyperlipidemia Comprehensive [place]. Panel Fast 05/24/23 E78.2 - Mixed hyperlipidemia Complete Blood Count no Diff 05/24/23 E78.2 - Mixed hyperlipidemia Coding Level of Care Code Est Pt Prev Care 40-64y(29191) Diagnoses Annual physical exam Z00.00 Class 1 obesity due to excess calories without serious comorbidity with body mass index (BMI) of 30.0 to 30.9 in adult E66.09; Z68.30 Body mass index: BMI 30.0-30.9 Obesity classification: adult class 1 (BMI 30 - 34.9) Obesity type: due to excess calories Serious obesity comorbidity presence: without serious comorbidity Low libido R68.82 Elevated blood pressure reading R03.0 Mixed hyperlipidemia E78.2 Hyperlipidemia type: mixed hyperlipidemia Additional Codes PAWEL-7 Assessment Billing - PAWEL-7 Assessment Tool: PAWEL-7 Assessment [id number] ([id number])
== END 2023-05-24 16:39 | disposition home or self-care (01) ==
PROVIDERS: PCP Physician Assistant; Visit Provider Physician Assistant
DX: Z00.00 Encounter for general adult medical examination without abnormal findings (principal); E66.09 Other obesity due to excess calories; Z68.30 Body mass index [BMI] 30.0-30.9, adult; R68.82 Decreased libido; R03.0 Elevated blood-pressure reading, without diagnosis of hypertension; E78.2 Mixed hyperlipidemia
CPT/HCPCS: 99396

== ENCOUNTER 2023-11-24 06:22 | Outpatient (REF) | payer OTHER, SELFPAY ==
[2023-11-24 07:15] LABS: Hematocrit 45.1 % (42.0-52.0); Hemoglobin 16.2 g/dl (14.0-18.0); Mean Corpuscular HGB Conc 35.9 g/dl (31.0-36.0); Mean Corpuscular Hemoglobin 31.3 pg (27.0-33.0); Mean Corpuscular Volume 87.1 fL (80.0-98.0); Mean Platelet Volume 9.6 fL (9.4-12.4); Platelet Count 233 X10*3/uL (160-400); Red Blood Count 5.18 X10*6/uL (4.60-5.80); White Blood Count 7.6 X10*3/uL (4.8-10.8)
[2023-11-24 07:43] LABS: Alanine Aminotransferase 30 U/L (0-40); Albumin Level 4.3 g/dL (3.5-5.0); Alkaline Phosphatase 74 U/L (39-117); Anion Gap 11 (12-20); Aspartate Amino Transferase 22 U/L (5-37); Bilirubin Total 1.5 mg/dL (0.0-1.0); Blood Urea Nitrogen 21 mg/dL (9-16); Carbon Dioxide 29 mmol/L (22-29); Chloride 106 mmol/L (96-108); Cholesterol 209 mg/dL (<200); Estimated Glomerular Filt Rate > 60; Glucose Fasting 102 mg/dL (60-99); HDL Cholesterol 43 mg/dL (>40); LDL Cholesterol Calculated 134 mg/dL (<100); Sodium 142 mmol/L (135-145); Total Protein 7.8 g/dL (6.5-8.0); Triglycerides 163 mg/dL (<150)
[2023-11-24 08:07] LABS: Prostate Specific Antigen 12.85 ng/mL (<0.05-4.0)
[2023-11-30 22:33] LABS: Testosterone, Free 54.8 pg/mL (35.0-155.0); Testosterone, Total 347 ng/dL (250-1100)
== END 2023-11-24 06:23 | disposition home or self-care (01) ==
LOC: HO.LAB 06:22
PROVIDERS: Absent Provider Nurse Practitioner Family; PCP Physician Assistant; Visit Provider Physician Assistant
DX: E78.2 Mixed hyperlipidemia (principal); Z80.42 Family history of malignant neoplasm of prostate; Z12.5 Encounter for screening for malignant neoplasm of prostate; E11.69 Type 2 diabetes mellitus with other specified complication; N52.1 Erectile dysfunction due to diseases classified elsewhere
CPT/HCPCS: 36415; 80053; 80061; 84153; 84402; 84403; 85027

== ENCOUNTER 2024-01-11 07:28 | Outpatient (AMB) | payer OTHER, SELFPAY ==
--- NOTE | 2024-01-11 07:42 | MHC.OFFVIS ---
Intake Visit Reasons: 6M labs r/s from 10/30(set) Intake Note: Patient presents today for follow up on: low libido, frequency, and lab results Total Testosterone: 347 Free Testosterone: 54.8 Urology Medications: Alfuzosin, Cialis Blood Thinner: None PVR: 114ml's [employer] Required: No Accompanied by: Self / Same As Patient Allergies No Known Allergies [No Known Allergies*] Allergy (Verified 01/11/24 08:23) Medication List - Last Reconciled 01/11/24 by BRENNON Hanna alfuzosin ER 10 mg PO DAILY 90 days sulfamethoxazole-trimethoprim 800-160 mg (Bactrim DS) 1 tab PO BID 14 days tadalafil (Cialis) 5 mg PO DAILY 90 days HPI Comments Details: Tim is a pleasant 53-year-old male patient of Dr. Kemp. He has a past medical history of arthritis, back pain, and hypercholesteremia. He presents to the office today for follow-up of his ongoing lower urinary tract symptoms. In discussion with the patient today he reports to be doing and feeling well. He reports compliance with alfuzosin and Cialis as prescribed. He reports feeling significant improvement in nocturia he had been experiencing. Previous workup has included a retroperitoneal ultrasound 01/27 noting bilateral kidneys with no hydronephrosis or renal calculi noted. The bladder is well distended. Mild diffuse irregularity of the bladder wall. Bilateral ureteral jets are demonstrated. Pre void bladder volume is approximately 525 mL. Postvoid bladder volume is approximately 180 mL. Prostate volume is approximately 47 mL. PSAs are as follows: 02/24 1.2, 10/27 2.1, 01/27 1.4, 11/28 12.9 04/30 Total testosterone: 435, free testosterone: 85.7, 11/28 347 free testosterone 11/28 54.8 We discussed significant increase in PSA and potential causes for this issue. MAX offered however deferred. We discussed treatment for potential prostatitis given increase in PSA verses redraw of PSA verses prostate biopsy verses MRI of the prostate. Risks and benefits of these interventions were discussed. He does have a family history of prostate cancer. He reports his father had prostate cancer He also has a history of bilateral epididymal head cysts, bilateral hydroceles, and bilateral varicoceles. However, he denies any bothersome scrotal issues. He otherwise denies incontinence, hematuria, foul smelling urine, changes to urinary stream, flank pain, fever, and or chills. He previously trialed Flomax and did not feel this was beneficial and noted no improvement in urinary symptoms. He otherwise offers no other issues or concerns at this time. [facility] Medical History Bilateral hydrocele Scrotal cyst Internal hemorrhoids Arthritis Back pain Elevated cholesterol Surgical History Hx of colonoscopy H/O arthroscopic knee surgery History of foot surgery History of surgery on arm History of repair of rotator cuff Family History Father Hypertension Prostate cancer Mother No problems noted. Social History Household Members Other:: , 5 kids Housing: House Alcohol intake: current Alcohol intake frequency: a few times a week Alcohol type: beer Patient Tobacco Use Status: Never used Tobacco Tobacco use type: Cigarette e-Cigarette/Vaping Use: Never Used Second Hand Smoke Exposure: No service: No Current occupational status: employed Current occupation: MAINTANCE Cognitive needs: No Hearing needs: No Vision needs: No Review of Systems Const Reports as per HPI Eyes Reports no additional complaints ENT Reports no additional complaints Card Reports as per HPI Resp Reports no additional complaints GI Reports no additional complaints Reports as per HPI Musc Reports as per HPI Neuro Reports no additional complaints Psych Reports no additional complaints Endo Reports no additional complaints Jaxon/Lymph Reports no additional complaints Aller/Immun Reports no additional complaints Physical Exam Const General: cooperative, healthy appearing, comfortable, no acute distress, well developed, alert and awake Orientation/consciousness: patient oriented x3 Limitations: no limitations HEENT Head: Yes normal to inspection, Yes normocephalic and Yes atraumatic Ears: hearing grossly normal bilaterally Eyes General: appearance normal, both eyes and all related structures Neck Neck: Yes normal visual inspection and Yes trachea midline Chest Chest palpation & inspection: normal inspection of the chest Resp Effort & Inspection: normal respiratory effort and able to speak in complete sentences Cardio Rate: regular rate GI Inspection: Yes normal to inspection General: Yes no CVA tenderness Back/Spine/Pelvis Back: no CVA tenderness Skin General skin exam: no rashes or lesions noted Neuro General: patient oriented x3 Extrem General: Yes normal to inspection Psych Appearance: grossly normal and well kempt Mental Status: mental status grossly normal Speech and movement: Normal speech and movement present and Clear speech present Affect: normal affect Attitude: cooperative Thought process: Normal thought process present Thought content: Normal thought content present Insight: Fair insight present (Psych) Judgement: Fair judgement present (Psych) Office Procedures Post Void Residual Post Residual Void Post Void Residual (PVR): 114 85131-Uvzj Void Residual by ultrasound Results AMB Urinalysis, Automated UA Leukoctes 0 Corey/uL Last Edit by [employer] Khandawit on 01/11/24 08:00 UA Nitrite Last Edit by Sammy Khandawit on 01/11/24 08:00 UA Urobilinogen 0.2 mg/dL Last Edit by [employer] Khandawit on 01/11/24 08:00 UA Protein 15 mg/dL Last Edit by [employer] Erindawit on 01/11/24 08:00 UA pH 6.5 Last Edit by Sammy Khandawit on 01/11/24 08:00 UA Blood 0 Archie/uL Last Edit by [employer] Erindawit on 01/11/24 08:00 UA Specific [place] 1.020 Last Edit by [employer] Khandawit on 01/11/24 08:00 UA Ketone Last Edit by [employer] Khandawit on 01/11/24 08:00 UA Bilirubin 0 mg/dL Last Edit by [email or web address] Erindawit on 01/11/24 08:00 UA Glucose 0 mg/dL Last Edit by [employer] Khandawit on 01/11/24 08:00 Results Reviewed Results Reviewed: Laboratory Last Values Urine pH (Auto) 6.5 01/11/24 07:49 Specific [place] (Auto) 1.020 01/11/24 07:49 Urine Protein (Auto) 15 mg/dL 01/11/24 07:49 Glucose (UA)(Auto) 0 mg/dL 01/11/24 07:49 Urine Blood (Auto) 0 Archie/uL 01/11/24 07:49 Urine Bilirubin (Auto) 0 mg/dL 01/11/24 07:49 Urine Urobilinogen (Auto) 0.2 mg/dL 01/11/24 07:49 Leukocyte Esterase (Auto) 0 Corey/uL 01/11/24 07:49 Assessment & Plan Assessment & Plan (1) Elevated PSA: Code(s): R97.20 - Elevated prostate specific antigen [PSA] Category: Medical (2) Lower urinary tract symptoms (LUTS): Code(s): R39.9 - Unspecified symptoms and signs involving the genitourinary system Category: Medical (3) Family history of prostate cancer in father: Code(s): Z80.42 - Family history of malignant neoplasm of prostate Category: Medical (4) Incomplete bladder emptying: Code(s): R33.9 - Retention of urine, unspecified Category: Medical Plan In office urinalysis results reviewed with the patient today; as noted above. PVR 114 mLs Recent PSA and testosterone results reviewed with the patient today; as noted above. We discussed at length potential causes of increase in PSA as well as further treatment options; risks and benefits of these treatment options were discussed. All questions were answered. MAX offered however deferred. Start Bactrim as discussed and prescribed. We discussed incomplete bladder emptying and attempting to double void or sit when urinating to assist with relaxing the pelvis. Will obtain PSA in 4-6 weeks status post completion of antibiotic therapy. Follow-up in 2 months with lab to be completed prior; or sooner with any issues, concerns, and or questions. Orders: Orders AMB Urinalysis Automated Today Z13.9 - Encounter for screening, unspecified AMB Post Void Residual by ultrasound Today R35.0 - Frequency of micturition PSA,Total (Free>4and<10) 6 Weeks R97.20 - Elevated prostate specific antigen [PSA] Medications: New sulfamethoxazole-trimethoprim 800-160 mg (Bactrim DS) 1 tab PO BID 28 tabs 0RF 14 days N39.0 - Urinary tract infection, site not specified Patient Instructions: The patient had an opportunity to ask questions regarding the treatment plan. All questions were answered. Physical exam, labs, and imaging were discussed and reviewed in detail. As well as risks, benefits, and discussion of treatment choices. No major barriers to understanding were identified. The patient expressed understanding and agreement with the above treatment plan. The patient was made aware they should contact our office by phone for worsening of their current condition, the appearance of new symptoms, or with any questions or concerns. Compliance is encouraged with any medications and follow up testing that is ordered. It is a privilege to be allowed the opportunity to participate in? your urological care.? Again, if you have any questions or concerns If you have any questions or concerns please do not hesitate to contact me. The office is [phone]. This note is constructed using voice recognition software. While every effort has been made to ensure accuracy cripple worker errors may have been included. Yours sincerely, BERNICE Hanna- Coding Level of Care Code Est Pt Level 4 (90055) Complex EM visit Add On G2211 Diagnoses Elevated PSA R97.20 Lower urinary tract symptoms (LUTS) R39.9 Family history of prostate cancer in father Z80.42 Incomplete bladder emptying R33.9 CPT Codes Post Residual Void - PVR CPT Code: 55957-Azyv Void Residual by ultrasound ([id number])
== END 2024-01-11 08:25 | disposition home or self-care (01) ==
LOC: HO.HUSH 07:28
PROVIDERS: PCP Physician Assistant; Visit Provider Nurse Practitioner Family
DX: R97.20 Elevated prostate specific antigen [PSA] (principal); R39.9 Unspecified symptoms and signs involving the genitourinary system; Z80.42 Family history of malignant neoplasm of prostate; R33.9 Retention of urine, unspecified; Z13.9 Encounter for screening, unspecified
CPT/HCPCS: 99214

== ENCOUNTER → 2024-01-11 07:28 | Outpatient (BNVA) | payer OTHER, SELFPAY | PROVIDERS: PCP Physician Assistant; Visit Provider Nurse Practitioner Family | DX: R97.20 Elevated prostate specific antigen [PSA] (principal); R35.0 Frequency of micturition; R33.9 Retention of urine, unspecified; N39.0 Urinary tract infection, site not specified; Z80.42 Family history of malignant neoplasm of prostate | CPT/HCPCS: 51798; 81003 ==

== ENCOUNTER 2024-02-15 06:40 | Outpatient (REF) | payer OTHER, SELFPAY ==
[2024-02-15 08:24] LABS: PSA,Total (Free>4and<10) 2.29 ng/mL (0.00-4.00)
== END 2024-02-15 06:41 | disposition home or self-care (01) ==
LOC: HO.LAB 06:40
PROVIDERS: PCP Physician Assistant; Visit Provider Nurse Practitioner Family
DX: R97.20 Elevated prostate specific antigen [PSA] (principal); Z12.5 Encounter for screening for malignant neoplasm of prostate
CPT/HCPCS: 36415; 84153

== ENCOUNTER 2024-03-14 07:27 | Outpatient (AMB) | payer OTHER, SELFPAY ==
--- NOTE | 2024-03-14 07:41 | A.OFFVIS_ITS ---
Intake Visit Reasons: 2m/PSA(set) Intake Note: Patient presents today for follow up on: low libido, frequency, and lab results Urology Medications: Alfuzosin, Cialis Blood Thinner: None PVR:97ml's Loan Clerk Required: No Accompanied by: Self / Same As Patient Allergies No Known Allergies [No Known Allergies*] Allergy (Verified 03/14/24 08:22) Medication List - Last Reconciled 03/14/24 by FIFI Hanna alfuzosin ER 10 mg PO DAILY 90 days tadalafil (Cialis) 5 mg PO DAILY 90 days HPI Comments Details: Tim is a pleasant 54-year-old male patient of Dr. Kemp. He has a past medical history of arthritis, back pain, and hypercholesteremia. He p resents to the office today for follow-up of his ongoing lower urinary tract symptoms and elevated PSA. Of note, patient was last seen approximately 2 months ago at which time he was treated with Bactrim for potential prostatitis given patient reporting lower urinary tract symptoms as well as a noted bump in PSA. In discussion with the patient today he reports having completed antibiotic therapy as prescribed. Redraw of PSA significantly decreased and these results were reviewed with the patient today as noted and trended below. 02/24 1.2, 10/27 2.1, 01/27 1.4, 11/28 12.9, 02/27 2.3 04/30 Total testosterone: 435, free testosterone: 85.7, 11/28 347 free testosterone 11/28 54.8 When asked he reports to be doing and feeling well. He reports compliance with alfuzosin and Cialis as prescribed. He currently denies any bothersome urinary issues or concerns. He does report noting weak urinary stream if he is not compliant with his medications. Previous workup has included a retroperitoneal ultrasound 01/27 noting bilateral kidneys with no hydronephrosis or renal calculi noted. The bladder is well distended. Mild diffuse irregularity of the bladder wall. Bilateral ureteral jets are demonstrated. Pre void bladder volume is approximately 525 mL. Postvoid bladder volume is approximately 180 mL. Prostate volume is approximately 47 mL. We discussed potential causes of bump in PSA. Will continue with surveillance monitoring at this time. He does have a family history of prostate cancer. He reports his father had prostate cancer. He also has a history of bilateral epididymal head cysts, bilateral hydroceles, and bilateral varicoceles. However, he denies any bothersome scrotal issues. He otherwise denies incontinence, hematuria, foul smelling urine, changes to urinary stream, flank pain, fever, and or chills. He previously trialed Flomax and did not feel this was beneficial and noted no improvement in urinary symptoms. He otherwise offers no other issues or concerns at this time. [facility] Medical History Bilateral hydrocele Scrotal cyst Internal hemorrhoids Arthritis Back pain Elevated cholesterol Surgical History Hx of colonoscopy H/O arthroscopic knee surgery History of foot surgery History of surgery on arm History of repair of rotator cuff Family History Father Hypertension Prostate cancer Mother No problems noted. Social History Household Members Other:: , 5 kids Housing: House Alcohol intake: current Alcohol intake frequency: a few times a week Alcohol type: beer Patient Tobacco Use Status: Never used Tobacco Tobacco use type: Cigarette e-Cigarette/Vaping Use: Never Used Second Hand Smoke Exposure: No service: No Current occupational status: employed Current occupation: MAINTANCE Cognitive needs: No Hearing needs: No Vision needs: No Review of Systems Const Reports as per HPI Eyes Reports no additional complaints ENT Reports no additional complaints Card Reports as per HPI Resp Reports no additional complaints GI Reports no additional complaints Reports as per HPI Musc Reports as per HPI Neuro Reports no additional complaints Psych Reports no additional complaints Endo Reports no additional complaints Jaxon/Lymph Reports no additional complaints Aller/Immun Reports no additional complaints Physical Exam Const General: cooperative, healthy appearing, comfortable, no acute distress, well developed, alert and awake Orientation/consciousness: patient oriented x3 Limitations: no limitations HEENT Head: Yes normal to inspection, Yes normocephalic and Yes atraumatic Ears: hearing grossly normal bilaterally Eyes General: appearance normal, both eyes and all related structures Neck Neck: Yes normal visual inspection and Yes trachea midline Chest Chest palpation & inspection: normal inspection of the chest Resp Effort & Inspection: normal respiratory effort and able to speak in complete sentences Cardio Rate: regular rate GI Inspection: Yes normal to inspection General: Yes no CVA tenderness Back/Spine/Pelvis Back: no CVA tenderness Skin General skin exam: no rashes or lesions noted Neuro General: patient oriented x3 Extrem General: Yes normal to inspection Psych Appearance: grossly normal and well kempt Mental Status: mental status grossly normal Speech and movement: Normal speech and movement present and Clear speech present Affect: normal affect Attitude: cooperative Thought process: Normal thought process present Thought content: Normal thought content present Insight: Fair insight present (Psych) Judgement: Fair judgement present (Psych) Office Procedures Post Void Residual Post Residual Void Post Void Residual (PVR): 97 [id number] Void Residual by ultrasound Results AMB Urinalysis, Automated UA Leukoctes 0 Corey/uL Last Edit by [employer] on 03/14/24 08:25 UA Nitrite Negative Last Edit by [employer] on 03/14/24 08:25 UA Urobilinogen 0.2 mg/dL Last Edit by [employer] on 03/14/24 08:25 UA Protein 15 mg/dL Last Edit by [employer] on 03/14/24 08:25 UA pH 6.0 Last Edit by [employer] on 03/14/24 08:25 UA Blood 25 Archie/uL Last Edit by [employer] on 03/14/24 08:25 UA Specific [place] 1.025 Last Edit by [employer] on 03/14/24 08:25 UA Ketone Negative Last Edit by [employer] on 03/14/24 08:25 UA Bilirubin 0 mg/dL Last Edit by [employer] on 03/14/24 08:25 UA Glucose 0 mg/dL Last Edit by [employer] on 03/14/24 08:25 Assessment & Plan Assessment & Plan (1) Incomplete bladder emptying: Code(s): R33.9 - Retention of urine, unspecified Category: Medical (2) Elevated PSA: Code(s): R97.20 - Elevated prostate specific antigen [PSA] Category: Medical (3) Lower urinary tract symptoms (LUTS): Code(s): R39.9 - Unspecified symptoms and signs involving the genitourinary system Category: Medical (4) Family history of prostate cancer in father: Code(s): Z80.42 - Family history of malignant neoplasm of prostate Category: Medical Plan In office urinalysis results reviewed with the patient today; as noted above. PVR 97 mL. Patient currently denies any bothersome urinary issues or concerns. Reports be happy with current voiding parameters. Recent PSA results reviewed with the patient today; as noted above. We discussed at length potential causes of elevated PSA. Continue Cialis and alfuzosin as prescribed. Will obtain PSA in 6 months. Follow-up in 6 months with lab to be completed prior; or sooner with any issues, concerns, and or questions. Orders: Orders AMB Post Void Residual by ultrasound Today R33.9 - Retention of urine, unspecified Prostate Specific Antigen 6 Months R97.20 - Elevated prostate specific antigen [PSA] AMB Urinalysis Automated Today Z13.9 - Encounter for screening, unspecified Patient Instructions: The patient had an opportunity to ask questions regarding the treatment plan. All questions were answered. Physical exam, labs, and imaging were discussed and reviewed in detail. As well as risks, benefits, and discussion of treatment choices. No major barriers to understanding were identified. The patient expressed understanding and agreement with the above treatment plan. The patient was made aware they should contact our office by phone for worsening of their current condition, the appearance of new symptoms, or with any questions or concerns. Compliance is encouraged with any medications and follow up testing that is ordered. It is a privilege to be allowed the opportunity to participate in? your urological care.? Again, if you have any questions or concerns If you have any questions or concerns please do not hesitate to contact me. The office is [phone]. This note is constructed using voice recognition software. While every effort has been made to ensure accuracy circuits engineer errors may have been included. Yours sincerely, BRENNON Hanna Coding Level of Care Code Est Pt Level 3 (34018) Diagnoses Incomplete bladder emptying R33.9 Elevated PSA R97.20 Lower urinary tract symptoms (LUTS) R39.9 Family history of prostate cancer in father Z80.42 CPT Codes Post Residual Void - PVR CPT Code: 78268-[id number] Void Residual by ultrasound ([id number])
== END 2024-03-14 08:28 | disposition home or self-care (01) ==
PROVIDERS: PCP Physician Assistant; Visit Provider Nurse Practitioner Family
DX: R33.9 Retention of urine, unspecified (principal); R97.20 Elevated prostate specific antigen [PSA]; R39.9 Unspecified symptoms and signs involving the genitourinary system; Z80.42 Family history of malignant neoplasm of prostate; Z13.9 Encounter for screening, unspecified
CPT/HCPCS: 99213

== ENCOUNTER → 2024-03-14 07:27 | Outpatient (BNVA) | payer OTHER, SELFPAY | PROVIDERS: PCP Physician Assistant; Visit Provider Nurse Practitioner Family | DX: R33.9 Retention of urine, unspecified (principal); R97.20 Elevated prostate specific antigen [PSA]; R39.9 Unspecified symptoms and signs involving the genitourinary system; Z80.42 Family history of malignant neoplasm of prostate | CPT/HCPCS: 51798; 81003 ==

== ENCOUNTER 2024-09-14 06:17 | Outpatient (REF) | payer OTHER, SELFPAY ==
[2024-09-14 08:39] LABS: Prostate Specific Antigen 2.29 ng/mL (<0.05-4.0)
== END 2024-09-14 06:18 | disposition home or self-care (01) ==
LOC: HO.LAB 06:17
PROVIDERS: PCP Physician Assistant; Visit Provider Nurse Practitioner Family
DX: R97.20 Elevated prostate specific antigen [PSA] (principal); Z12.5 Encounter for screening for malignant neoplasm of prostate
CPT/HCPCS: 36415; 84153